=== PATIENT | female | born 1955 | race Caucasian/White ===

== ENCOUNTER 2017-03-16 06:21 | Inpatient (IN) | payer MEDICARE ==
[2017-03-16] MEDS ORDERED: Phenergan 25 MG INJ IV ONE (06:38)
[2017-03-16] MEDS ORDERED: Sodium Chloride 0.9% 1000 ML 1,000 ML IV STA (06:38)
--- NOTE | 2017-03-16 06:53 | ERPHSYRPT ---
- History of Present Illness Source: patient Exam Limitations: no limitations Patient Subjective Stated Complaint: woke up with heart racing.vomiting x 3 since yesterday. dizziness but muller had that for a long time. bilateral lower leg ulcers for years. feeling hot and cold Triage Nursing Assessment: alert and oriented. staets woke up with heart racing. denies CP. vomited x 3 nauseated on arrival. denies knowing if she had fever has no thermometer but has been hot and cold. denies cough. denies abdominal pain. bilatreral lower leg ulcers which she has been treating for "years" Hx Tetanus, Diphtheria Vaccination/Date Given: No Hx Influenza Vaccination/Date Given: Yes (Fall 2013) Hx Pneumococcal Vaccination/Date Given: Yes Immunizations Up to Date: (unknown) <JENARO DURHAM - Last Filed: 03/16/17 07:07> <ZAHIDA SIDDIQUI - Last Filed: 03/16/17 09:04> - History of Present Illness Time Seen by Provider: 03/16/17 06:24 Physician History: FOR THE PAST 90 MINUTES PT HAS HAD A FAST HEART RATE AND CHILLS; FOR THE PAST 2 DAYS A COUGH PRODUCTIVE OF YELLOW PHLEGM AND VOMITING X3; FOR THE PAST WEEK GENERALIZED WEAKNESS; FOR THE PAST 12 YEARS CHRONIC DIARRHEA. PT DENIES CHEST PAIN, ABDOMINAL PAIN, FEVER, SHORTNESS OF AIR. (JENARO DURHAM) Allergies/Adverse Reactions: No Known Drug Allergies Allergy (Unverified 09/25/14 13:29) Home Medications: Albuterol 8 gm Mdi Hfa [Ventolin Hfa MDI] 2 puff IH QID PRN 03/20/13 [ History] Furosemide 40 mg PO DAILY 03/20/13 [History] Insulin Aspart [NovoLOG Insulin] 0 unit SQ DAILY 03/20/13 [History] Levothyroxine Sodium 75 Mcg [Synthroid 75 Mcg] 1 tab PO DAILY 03/20/13 [ History] Linagliptin [Tradjenta] 5 mg PO DAILY 03/20/13 [History] Liraglutide [Victoza 2-Marcell] mg SQ DAILY 03/20/13 [History] Losartan/Hydrochlorothiazide [Losartan-Hctz 100-25 mg Tab] 1 tab PO DAILY [History] Metoprolol Tartrate 12.5 mg PO BID 03/20/13 [History] [place]-3 Fatty Acids/Fish Oil [Fish Oil 1,000 mg Softgel] 1 each PO DAILY [History] Omeprazole 20 MG [Prilosec 20 mg] 1 cap PO DAILY 03/20/13 [History] Potassium Chloride 10 Meq Tab* [Klor Con 10 MEQ] 40 meq PO BID 03/20/13 [ History] Rivaroxaban [Xarelto] 15 mg PO DAILY 03/20/13 [History] Venlafaxine HCl ER 75 mg [Effexor XR 75 MG] 150 mg PO DAILY 03/20/13 [ History] Dapagliflozin Propanediol [Farxiga] 10 mg PO DAILY 08/26/13 [History] Metformin HCl 500 mg [Glucophage 500 MG] 500 mg PO BID 08/26/13 [History] Allopurinol 300 mg [Zyloprim 300 mg] 300 mg PO DAILY 09/25/14 [History] Calcium Carbonate/Vitamin D3 [Caltrate 600 + D Tablet] 3 each PO DAILY 09/25/14 [History] Cholecalciferol (Vitamin D3) [Vitamin D] 1.25 mg PO 09/25/14 [History] Iron 18 mg PO BID 09/25/14 [History] L.acidoph,Paracasei, B.lactis [Probiotic] 1 each PO DAILY 09/25/14 [History] - Review of Systems Constitutional: Chills, Weakness (GENERALIZED), No Fever Respiratory: Cough, No Dyspnea Cardiac: Other (FAST HEART RATE), No Chest Pain Abdominal/Gastrointestinal: Vomiting, Diarrhea, No Abdominal Pain Neurological: No Headache Endocrine: No Excessive Sweating All Other Systems: Reviewed and Negative <JENARO DURHAM - Last Filed: 03/16/17 07:07> - Past Medical History Pertinent Past Medical History: Yes Neurological History: Peripheral Neuropathy ENT History: Other Cardiac History: Congestive Heart Failure, Hypertension, Myocardial Infarction ( [place]), Peripheral Vascular Disease Respiratory History: Asthma, CHF Endocrine Medical History: Diabetes Type II Musculoskeletal History: Arthritis GI Medical History: GERD, Ulcer, Other History: No Pertinent History Psycho-Social History: Anxiety Female Reproductive Disorders: No Pertinent History Other Medical History: IDDM W/ INSULIN PUMP; HTN; GASTRIC BYPASS 2012 - Past Surgical History Past Surgical History: Yes Neuro Surgical History: No Pertinent History Cardiac: No Pertinent History, Cardiac Catheterization Respiratory: No Pertinent History Gastrointestinal: Cholecystectomy Genitourinary: No Pertinent History Musculoskeletal: Other Female Surgical History: No Pertinent History Other Surgical History: states "opened up to drain fluid of the heart around 2012"right collar bone,right top of foot surgery spurs removed,right palm of hand trigger finger.,bariatric surgery, - Social History Smoking Status: Former smoker How long have you smoked: 1 yr Exposure to second hand smoke: No Drug Use: none Patient Lives Alone: No Significant Family History: heart disease - Female History Hx Now: No <JENARO DURHAM - Last Filed: 03/16/17 07:07> - Physical Exam General Appearance: alert Eye Exam: PERRL/EOMI Ears, Nose, Throat Exam: TMs normal, pharynx normal, moist mucous membranes Neck Exam: normal inspection Respiratory Exam: lungs clear Cardiovascular Exam: irregular (IRREGULARLY IRREGULAR), No gallop Gastrointestinal/Abdomen Exam: soft, normal bowel sounds Back Exam: normal range of motion Extremity Exam: swelling (+1 ANKLE EDEMA BILATERALLY) Neurologic Exam: alert, cooperative Skin Exam: warm, dry SpO2 Interpretation: normal SpO2: 96 Oxygen Delivery: Room Air <JENARO DURHAM - Last Filed: 03/16/17 07:07> <ZAHIDA SIDDIQUI - Last Filed: 03/16/17 09:04> - Nursing Vital Signs Nursing Vital Signs: Initial Vital Signs Temperature 98.9 F 03/16/17 06:27 Pulse Rate 110 H 03/16/17 06:27 Respiratory Rate 20 03/16/17 06:27 Blood Pressure 168/80 03/16/17 06:27 O2 Sat by Pulse Oximetry 96 03/16/17 06:27 Pain Scale Pain Intensity 0 - Course Nursing assessment & vital signs reviewed: Yes EKG Interpreted by Me: RATE (88), Sinus Rhythm, NORMAL AXIS, Non-specific ST Changes, Other (IRREGULAR ) <JENARO DURHAM - Last Filed: 03/16/17 07:07> - Radiology Exams Chest X-ray Interpretation: Teleradiologist Report, Pneumonia, Other (vascular congestion) <ZAHIDA SIDDIQUI - Last Filed: 03/16/17 09:04> Ordered Tests: Active Orders 24 hr Category Date Time Status Risk And Compliance Analytics Director STAT Care 03/16/17 06:40 Active Clean Catch Urine Specimen STAT Care 03/16/17 06:38 Active EKG-ER Only STAT Care 03/16/17 06:38 Active IV Insertion STAT Care 03/16/17 06:38 Active Oxygen-ED Only NASAL CANNULA 2 lpm Care 03/16/17 06:38 Active Pulse Oximetry (ED) STAT Care 03/16/17 06:38 Active CHEST 1 VIEW (PORTABLE) Stat Exams 03/16/17 06:39 Completed AMYLASE Stat Lab 03/16/17 07:00 Completed CBC W DIFF Stat Lab 03/16/17 07:00 Completed CMP Stat Lab 03/16/17 07:00 Completed CULTURE,URINE Stat Lab 03/16/17 07:00 Received LIPASE Stat Lab 03/16/17 07:00 Completed MAGNESIUM Stat Lab 03/16/17 07:00 Completed Manual Differential NC Stat Lab 03/16/17 07:00 Completed NT PRO BNP Stat Lab 03/16/17 07:00 Completed TROPONIN Q3H Lab 03/16/17 07:00 Completed TROPONIN Q3H Lab 03/16/17 09:45 Ordered TROPONIN Q3H Lab 03/16/17 12:45 Ordered TROPONIN Q3H Lab 03/16/17 15:45 Ordered TROPONIN Q3H Lab 03/16/17 18:45 Ordered TROPONIN Q3H Lab 03/16/17 21:45 Ordered UA W/ MICROSCOPIC Stat Lab 03/16/17 07:00 Completed Urine Triage Profile Stat Lab 03/16/17 07:00 Completed Transfer Order Routine Transfer 03/16/17 Ordered Medication Summary Generic Name Dose Route Start Last Admin Trade Name Freq PRN Reason Stop Dose Admin Azithromycin 500 mg in 250 mls @ 250 mls/hr 03/16/17 08:52 Zithromax 500 Mg/ 250 Ml Nacl Premix IV 03/16/17 09:51 STAT STA Discontinued Medications Generic Name Dose Route Start Last Admin Trade Name Freq PRN Reason Stop Dose Admin Ceftriaxone Sodium 1,000 mg 03/16/17 07:48 03/16/17 08:10 Rocephin 1000 Mg Inj IV 03/16/17 07:49 1,000 mg STAT ONE Administration Sodium Chloride 1,000 mls @ 999 mls/hr 03/16/17 06:38 03/16/17 07:03 Sodium Chloride 0.9% 1000 Ml IV 03/16/17 07:38 999 mls/hr .Q1H1M STA Administration Sodium Chloride Confirm 03/16/17 06:58 Sodium Chloride 0.9% 1000 Ml Administered 03/16/17 06:59 Dose 1,000 mls @ ud .ROUTE .STK-MED ONE Ceftriaxone Sodium/Dextrose Confirm 03/16/17 08:09 Rocephin 1 Gm-D5w 50 Ml Bag Administered 03/16/17 08:10 Dose 1 g in 50 mls @ ud IV .STK-MED ONE Promethazine HCl 12.5 mg 03/16/17 06:38 03/16/17 07:03 Phenergan 25 Mg Inj IV 03/16/17 06:39 12.5 mg STAT ONE Administration Promethazine HCl Confirm 03/16/17 06:58 Phenergan 25 Mg Inj Administered 03/16/17 06:59 Dose 25 mg .ROUTE .STK-MED ONE Lab/Rad Data: Laboratory Result Diagrams 03/16/17 07:00 03/16/17 07:00 Laboratory Results 03/16/17 03/16/17 03/16/17 Range/Units 07:00 07:00 07:00 WBC (4.0-10.5) K/mm3 RBC (4.1-5.4) M/mm3 Hgb (12.0-16.0) gm/dl Hct (35-47) % MCV (78-100) fl MCH (26-32) pg MCHC (32-36) g/dl RDW (11.5-14.0) % Plt Count (150-450) K/mm3 MPV (6-9.5) fl Segmented Neutrophils (36.0-66.0) % Lymphocytes (Manual) (24-44) % Monocytes (Manual) (0.0-12.0) % Eosinophils (Manual) (0.00-3.0) % Differential Comment Platelet Estimate (NORMAL) Sodium (136-145) mEq/L Potassium (3.5-5.1) mEq/L Chloride (98-107) mEq/L Carbon Dioxide (21-32) mEq/L Anion Gap (5-15) MEQ/L BUN (9-20) mg/dL Creatinine (0.55-1.30) mg/dl Estimated GFR ML/MIN Glucose (70-110) MG/DL Calcium (8.5-10.1) mg/dL Magnesium (1.8-2.4) mg/dL Total Bilirubin (0.2-1.0) mg/dL AST (15-37) U/L ALT (12-78) U/L Alkaline Phosphatase (46-116) U/L Troponin I < 0.017 (0.000-0.056) ng/ml NT-Pro-B Natriuret Pep (0-125) pg/ml Serum Total Protein (6.4-8.2) gm/dL Albumin (3.4-5.0) g/dL Amylase (25-115) U/L Lipase (73-393) U/L Ur Collection Type CLEAN CATCH Urine Color YELLOW (YELLOW) Urine Appearance HAZY (CLEAR) Urine pH 5.0 (5-6) Ur Specific [place] 1.025 (1.005-1.025) Urine Protein 300 (Negative) Urine Ketones NEGATIVE (NEGATIVE) Urine Blood 250 (0-5) Yovany/ul Urine Nitrite NEGATIVE (NEGATIVE) Urine Bilirubin NEGATIVE (NEGATIVE) Urine Urobilinogen NORMAL (0-1) mg/dL Ur Leukocyte Esterase 2+ (NEGATIVE) Urine Microscopic RBC 5-10 (0-2) /HPF Urine Microscopic WBC 50-100 (0-5) /HPF Ur Epithelial Cells MODERATE (FEW) /HPF Urine Bacteria MANY (NEGATIVE) /HPF Urine Culture Reflexed YES (NO) Urine Glucose NEGATIVE (NEGATIVE) mg/dL Urine Opiates Level NEG. (NEGATIVE) Ur Methadone NEG. (NEGATIVE) Urine Barbiturates NEG. (NEGATIVE) Ur Phencyclidine (PCP) NEG. (NEGATIVE) Urine Amphetamine NEG. (NEGATIVE) U Benzodiazepine Level NEG. (NEGATIVE) Urine Cocaine NEG. (NEGATIVE) Urine Marijuana (THC) NEG. (NEGATIVE) Specimen Received 03-15-17 0700 03/16/17 03/16/17 Range/Units 07:00 07:00 WBC 5.8 (4.0-10.5) K/mm3 RBC 4.30 (4.1-5.4) M/mm3 Hgb 13.1 (12.0-16.0) gm/dl Hct 40.3 (35-47) % MCV 93.7 (78-100) fl MCH 30.5 (26-32) pg MCHC 32.5 (32-36) g/dl RDW 13.8 (11.5-14.0) % Plt Count 128 L (150-450) K/mm3 MPV 10.8 H (6-9.5) fl Segmented Neutrophils 78 H (36.0-66.0) % Lymphocytes (Manual) 12 L (24-44) % Monocytes (Manual) 8 (0.0-12.0) % Eosinophils (Manual) 2 (0.00-3.0) % Differential Comment NORMAL Platelet Estimate NORMAL (NORMAL) Sodium 143 (136-145) mEq/L Potassium 4.6 (3.5-5.1) mEq/L Chloride 108 H (98-107) mEq/L Carbon Dioxide 26.8 (21-32) mEq/L Anion Gap 13.0 (5-15) MEQ/L BUN 18 (9-20) mg/dL Creatinine 1.17 (0.55-1.30) mg/dl Estimated GFR 50 ML/MIN Glucose 155 H (70-110) MG/DL Calcium 8.9 (8.5-10.1) mg/dL Magnesium 1.5 L (1.8-2.4) mg/dL Total Bilirubin 0.40 (0.2-1.0) mg/dL AST 28 (15-37) U/L ALT 34 (12-78) U/L Alkaline Phosphatase 137 H (46-116) U/L Troponin I (0.000-0.056) ng/ml NT-Pro-B Natriuret Pep 1047 H (0-125) pg/ml Serum Total Protein 7.4 (6.4-8.2) gm/dL Albumin 4.0 (3.4-5.0) g/dL Amylase 70 (25-115) U/L Lipase 82 (73-393) U/L Ur Collection Type Urine Color (YELLOW) Urine Appearance (CLEAR) Urine pH (5-6) Ur Specific [place] (1.005-1.025) Urine Protein (Negative) Urine Ketones (NEGATIVE) Urine Blood (0-5) Yovany/ul Urine Nitrite (NEGATIVE) Urine Bilirubin (NEGATIVE) Urine Urobilinogen (0-1) mg/dL Ur Leukocyte Esterase (NEGATIVE) Urine Microscopic RBC (0-2) /HPF Urine Microscopic WBC (0-5) /HPF Ur Epithelial Cells (FEW) /HPF Urine Bacteria (NEGATIVE) /HPF Urine Culture Reflexed (NO) Urine Glucose (NEGATIVE) mg/dL Urine Opiates Level (NEGATIVE) Ur Methadone (NEGATIVE) Urine Barbiturates (NEGATIVE) Ur Phencyclidine (PCP) (NEGATIVE) Urine Amphetamine (NEGATIVE) U Benzodiazepine Level (NEGATIVE) Urine Cocaine (NEGATIVE) Urine Marijuana (THC) (NEGATIVE) Specimen Received <JENARO DURHAM - Last Filed: 03/16/17 07:07> - Progress Progress: improved Discussed with : Malia (Dr. Small notified and agreed with admission) Will see patient in: hospital (observation) Counseled pt/family regarding: lab results, diagnosis, rad results <ZAHIDA SIDDIQUI - Last Filed: 03/16/17 09:04> - Progress Progress Note: 03/16/17 07:[address] SIDDIQUI @ 0702. (JENARO DURHAM) 03/16/17 08:52 Pt. given Rocephin/Zithromax (ZAHIDA SIDDIQUI) <JENARO DURHAM - Last Filed: 03/16/17 07:07> - Departure Time of Disposition: 08:51 Departure Disposition: Observation Critical Care Time: No <ZAHIDA SIDDIQUI - Last Filed: 03/16/17 09:04> - Departure Clinical Impression: UTI (urinary tract infection), Pneumonia Condition: Stable Referrals: SHAVON SMALL [Primary Care Provider] -
[2017-03-16] MEDS ORDERED: Sodium Chloride 0.9% 1000 ML 1,000 ML ONE (06:58)
[2017-03-16] MEDS ORDERED: Phenergan 25 MG INJ ONE (06:58)
[2017-03-16 07:02] LABS: Granulocyte Absolute (ANC) 4.25 (1.4-6.9); Hematocrit 40.3 % (35-47); Hemoglobin 13.1 gm/dl (12.0-16.0); Mean Cell Volume 93.7 fl (78-100); Mean Corpuscular Hemoglobin 30.5 pg (26-32); Mean Corpuscular Hgb Concent. 32.5 g/dl (32-36); Mean Platelet Volume 10.8 fl (6-9.5); Platelet Count 128 K/mm3 (150-450); Red Cell Distribution Width 13.8 % (11.5-14.0); White Blood Count 5.8 K/mm3 (4.0-10.5)
[2017-03-16 07:15] LABS: Appearance HAZY (CLEAR); Specific Gravity 1.025 (1.005-1.025)
[2017-03-16 07:16] LABS: Amphetamine,Urine NEG. (NEGATIVE); Barbiturate,Urine NEG. (NEGATIVE); Benzodiazepine,Urine NEG. (NEGATIVE); Bilirubin NEGATIVE (NEGATIVE); Blood 250 Ery/ul (0-5); Cocaine,Urine NEG. (NEGATIVE); Glucose NEGATIVE (NEGATIVE); Ketones NEGATIVE (NEGATIVE); Leukocyte Esterase 2+ (NEGATIVE); Methadone,Urine NEG. (NEGATIVE); Nitrite NEGATIVE (NEGATIVE); Opiate,Urine NEG. (NEGATIVE); PCP,Urine NEG. (NEGATIVE); Protein,Urine Dip 300 (Negative); THC,Urine NEG. (NEGATIVE); Urobilinogen NORMAL mg/dL (0-1)
[2017-03-16 07:23] LABS: Bacteria MANY /HPF (NEGATIVE); Epithelial Cells MODERATE /HPF (FEW); WBC 50-100 /HPF (0-5)
[2017-03-16 07:30] LABS: BILIRUBIN,TOTAL 0.4 mg/dL (0.2-1.0); Calcium 8.9 mg/dL (8.5-10.1); Carbon Dioxide 26.8 mEq/L (21-32); Creatinine 1 1.17 mg/dl (0.55-1.30); MAGNESIUM 1.5 mg/dL (1.8-2.4); Potassium 4.6 mEq/L (3.5-5.1); Total Protein 7.4 gm/dL (6.4-8.2)
[2017-03-16] MEDS ORDERED: Rocephin 1000 MG INJ IV ONE (07:48)
[2017-03-16] MEDS ORDERED: ROCEPHIN 1 Gm-D5w 50 ml Bag** 1 G/50 ML IVPB IV ONE (08:09)
[2017-03-16 08:31] LABS: Eosinophil 2 % (0.00-3.0); Lymphocytes 12 % (24-44); Monocyte 8 % (0.0-12.0); Neutrophils 78 % (36.0-66.0); Platelet Estimate NORMAL (NORMAL); Total Cells Counted 100
--- NOTE | 2017-03-16 08:39 | XRAY ---
Indication: Cough. Comparison: February 03, 2012. Portable chest now demonstrates cardiomegaly with vascular congestion. No focal infiltrate, consolidation, or large effusion. Bony thorax intact again with mild osteopenia. Impression: Cardiomegaly with vascular congestion. Rule out early/mild cardiac decompensation. Superimposed pneumonia not completely excluded.
[2017-03-16] MEDS ORDERED: Zithromax 500 MG/ 250 ML NaCl Premix 500 MG/250 ML IVPB IV STA (08:52)
[2017-03-16] MEDS ORDERED: NovoLIN R SQ PRN (09:54)
[2017-03-16] MEDS ORDERED: ROCEPHIN 1 Gm-D5w 50 ml Bag** 1 G/50 ML IVPB IV SCH (10:00)
[2017-03-16] MEDS ORDERED: Sodium Chloride 0.9% 10 ML FLUSH Syringe IV PRN (10:40)
[2017-03-16] MEDS ORDERED: Zithromax 500 MG/ 250 ML NaCl Premix 500 MG/250 ML IVPB IV SCH (11:15)
[2017-03-16 11:25] LABS: ANION GAP 9.2 MEQ/L (5-15); Calcium 8.3 mg/dL (8.5-10.1); Carbon Dioxide 28.7 mEq/L (21-32); Creatinine 1 1.06 mg/dl (0.55-1.30); PREALBUMIN 17.6 mg/dL (18.0-35.7); Potassium 4.8 mEq/L (3.5-5.1)
[2017-03-16 12:28] LABS: INFLUENZA A NEGATIVE (NEGATIVE); INFLUENZA B NEGATIVE (NEGATIVE); RESPIRATORY SYNCTIAL VIRUS NEGATIVE (Negative)
[2017-03-16] MEDS ORDERED: PROTEASE PO SCH (14:30)
[2017-03-16] MEDS ORDERED: EXENATIDE MICROSPHERES 2 MG SQ SCH (14:30)
[2017-03-16] MEDS ORDERED: LIPASE PO SCH (14:30)
[2017-03-16] MEDS ORDERED: AMYLASE PO SCH (14:30)
[2017-03-16] MEDS ORDERED: PROVENTIL COMMON CANISTER IH SCH (15:00)
[2017-03-16] MEDS ORDERED: PANCRELIPASE DR 5,000 UNIT CAP PO PRN (15:00)
[2017-03-16] MEDS ORDERED: MEDICATION INTERVENTION MC PRN (15:27)
[2017-03-16] MEDS: Cozaar 50 MG PO SCH (15:35)
[2017-03-16] MEDS: SYNTHROID 75 MCG PO SCH (15:35)
[2017-03-16] MEDS: Januvia 50 MG PO SCH (15:35)
[2017-03-16] MEDS: Effexor XR 75 MG PO SCH (15:35)
[2017-03-16] MEDS: Lasix 40 MG PO SCH (15:36)
[2017-03-16] MEDS: Sodium Chloride 0.9% 10 ML FLUSH Syringe IV SCH ×2 (15:36→21:20)
[2017-03-16] MEDS: hydroDIURIL 25 MG PO SCH (15:36)
[2017-03-16] MEDS: ANTIVERT 25 MG PO SCH ×2 (15:36→21:14)
[2017-03-16] MEDS: PANCRELIPASE DR 5,000 UNIT CAP PO SCH (16:11)
[2017-03-16] MEDS ORDERED: Ventolin Hfa MDI IH SCH (17:00)
[2017-03-16] MEDS ORDERED: Cardizem IV 50 MG/10 ML IV ONE (17:30)
[2017-03-16] MEDS ORDERED: CARDIZEM DRIP 100 MG/100 ML D5W 100 ML IV PRN (17:30)
[2017-03-16] MEDS: XARELTO 10 MG TABLET PO SCH (17:36)
[2017-03-16] MEDS: Protonix 40MG Tablet PO SCH (21:14)
[2017-03-16] MEDS ORDERED: OMEPRAZOLE 20 MG PO SCH (22:00)
[2017-03-16] MEDS ORDERED: Lopressor 25MG Tab PO SCH (22:00)
[2017-03-17] MEDS: Sodium Chloride 0.9% 10 ML FLUSH Syringe IV SCH ×3 (05:47→21:37)
[2017-03-17 05:48] LABS: BASOPHIL % 0.6 % (0.0-0.4); Basophil (Absolute #) 0.03 (0-0.4); Eosinophil % 11.2 % (0.00-5.0); Eosinophil (Absolute #) 0.54 (0-0.5); Granulocyte Absolute (ANC) 2.69 (1.4-6.9); Granulocytes % 55.8 % (36.0-66.0); Hematocrit 38.5 % (35-47); Hemoglobin 12.7 gm/dl (12.0-16.0); Lymphocyte (Absolute #) 1.08 (1.0-4.6); Lymphocytes % 22.4 % (24.0-44.0); Mean Cell Volume 92.3 fl (78-100); Mean Corpuscular Hemoglobin 30.5 pg (26-32); Mean Platelet Volume 10.2 fl (6-9.5); Monocyte (Absolute #) 0.48 (0.0-1.3); Platelet Count 148 K/mm3 (150-450); Red Blood Count 4.17 M/mm3 (4.1-5.4); Red Cell Distribution Width 13.5 % (11.5-14.0); White Blood Count 4.8 K/mm3 (4.0-10.5)
[2017-03-17 06:37] LABS: ALBUMIN 3.3 g/dL (3.4-5.0); ANION GAP 12.3 MEQ/L (5-15); BILIRUBIN,TOTAL 0.5 mg/dL (0.2-1.0); Calcium 8.7 mg/dL (8.5-10.1); Carbon Dioxide 26.5 mEq/L (21-32); Creatinine 1 1.03 mg/dl (0.55-1.30); Potassium 4.1 mEq/L (3.5-5.1); Total Protein 6.4 gm/dL (6.4-8.2)
[2017-03-17] MEDS: PANCRELIPASE DR 5,000 UNIT CAP PO SCH ×3 (08:29→14:49)
[2017-03-17] MEDS: ROCEPHIN 1 Gm-D5w 50 ml Bag** 1 G/50 ML IVPB IV SCH (08:34)
[2017-03-17] MEDS: SYNTHROID 75 MCG PO SCH (08:34)
[2017-03-17] MEDS ORDERED: Magnesium 1 Gm / 100 Ml D5W*** 100 ML IV ONE (09:30)
[2017-03-17] MEDS: hydroDIURIL 25 MG PO SCH (09:50)
[2017-03-17] MEDS: Protonix 40MG Tablet PO SCH ×2 (09:50→21:34)
[2017-03-17] MEDS: Cozaar 50 MG PO SCH (09:50)
[2017-03-17] MEDS: Lasix 40 MG PO SCH (09:50)
[2017-03-17] MEDS: CLARITIN 10 MG PO SCH (09:50)
[2017-03-17] MEDS: Lopressor 25MG Tab PO SCH ×2 (09:50→21:35)
[2017-03-17] MEDS: Effexor XR 75 MG PO SCH (09:53)
[2017-03-17] MEDS: ANTIVERT 25 MG PO SCH ×3 (09:53→21:34)
[2017-03-17] MEDS: Januvia 50 MG PO SCH (09:53)
[2017-03-17] MEDS ORDERED: VITAMIN D2 PO SCH (10:00)
[2017-03-17] MEDS ORDERED: NON-FORMULARY ITEM (Rivaroxaban [Xarelto] 15 MG) PO SCH (10:00)
[2017-03-17] MEDS ORDERED: Cardizem CD 180 MG PO SCH (10:00)
[2017-03-17] MEDS ORDERED: NON-FORMULARY ITEM (Linagliptin [Tradjenta] 5 MG) PO SCH (10:00)
[2017-03-17] MEDS ORDERED: NON-FORMULARY ITEM (Losartan/Hydrochlorothiazide [Losartan-Hctz 100-25 Mg Tab] 1 TAB) PO SCH (10:00)
--- NOTE | 2017-03-17 11:13 | HP ---
CHIEF COMPLAINT: Heart racing, nausea and vomiting. HISTORY OF PRESENT ILLNESS: The patient is a 61 year-old white female who reports that she woke up with her heart racing. By the time she got to the emergency room her heart rate was 110 and was apparently at that time in sinus rhythm. The patient on evaluation was found to possibly have a pneumonia with infiltrate or atelectasis in the base and she had no symptoms of urinary tract infection but she did have significant white cells in her urine. She had the urine cultured. She was placed on Rocephin and Zithromax and admitted to the hospital for further evaluation and management. PAST MEDICAL/SURGICAL HISTORY: Significant for having gastric bypass surgery. She has had congestive heart failure, previous myocardial infarction, hypertension, diabetes mellitus type 2. She currently has an insulin pump. HOME MEDICATIONS: Include Albuterol, Furosemide, insulin, levothyroxine, Tradjenta, Victoza, losartan hydrochlorothiazide, metoprolol, omeprazole, potassium, Xarelto, Effexor, Farxiga, Metformin, Allopurinol, iron. ALLERGIES: NKDA. PHYSICAL EXAMINATION: Revealed a well nourished, well developed 61 year-old white female in no obvious distress. HEENT: Normocephalic, atraumatic. Pupils equal round reactive to light. Extraocular movements intact. Oropharynx is pink and moist. NECK: Supple without lymphadenopathy, thyromegaly or JVD. CHEST: Clear to auscultation with good air movement bilaterally. HEART: Currently irregular. The rate is somewhat fast right now and approximately 110. ABDOMEN: Soft. No palpable masses are felt. EXTREMITIES: Without clubbing, cyanosis or significant edema. NEUROLOGIC: The patient is alert and oriented x3 with no focal deficits noted. LAB DATA AND TESTS: Chest x-ray showed cardiomegaly with vascular congestion, supra-imposed pneumonia could not be excluded. Her metabolic panel showed a nonfasting glucose of 155, BUN 18, creatinine 1.17. Electrolytes were normal however magnesium was low at 1.7. Liver enzymes were essentially normal. She did have an elevation of ProBNP of 1,047. The troponin was less than 0.017. Urine drug screen was entirely negative. UA showed 300 protein, 50 to 100 white blood cells per high power field, nitrite however was negative. Her white blood cell count was 5,800, hemoglobin 13.1, PLT count 128,000. There was slight left shift at 78% granulocytes. ASSESSMENT: A patient with atrial fibrillation probably with rapid ventricular response at home. The patient has been admitted to the hospital and placed on Cardizem drip. She currently is being empirically treated for pneumonia with Rocephin. Zithromax was also given which we will now hold. There is also possibility of urinary tract infection. The urine has been cultured and currently pending. We will obtain cardiology consultation as the atrial fibrillation is possibly new. I do not recall her having it in the past and neither does she. 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
[2017-03-17] MEDS: XARELTO 10 MG TABLET PO SCH (17:59)
[2017-03-18 06:39] LABS: ANION GAP 12.4 MEQ/L (5-15); Calcium 8.8 mg/dL (8.5-10.1); Carbon Dioxide 27.3 mEq/L (21-32); Creatinine 1 1.21 mg/dl (0.55-1.30); MAGNESIUM 1.6 mg/dL (1.8-2.4); Potassium 3.8 mEq/L (3.5-5.1)
[2017-03-18] MEDS: PANCRELIPASE DR 5,000 UNIT CAP PO SCH ×2 (07:30→12:20)
[2017-03-18] MEDS: Sodium Chloride 0.9% 10 ML FLUSH Syringe IV SCH (07:54)
--- NOTE | 2017-03-18 09:25 | PCM.DS ---
Discharge Summary Date of Admission: 03/16/17 17:53 Admitting Physician: SHAVON SMALL Primary Care Provider: SHAVON SMALL Allergies Allergies No Known Drug Allergies Allergy (Verified 03/16/17 09:52) Hospital Summary - Vitals & Intake/Output Vital Signs: Vital Signs Temperature 98.5 F 03/18/17 07:20 Pulse Rate 63 03/18/17 07:20 Respiratory Rate 16 03/18/17 08:00 Blood Pressure 161/70 03/18/17 07:20 O2 Sat by Pulse Oximetry 91 L 03/18/17 07:20 Oxygen-Last Documented O2 Percentage 2 Liters = 28% Intake & Output: Intake & Output 03/15/17 03/16/17 03/17/17 03/18/17 11:59 11:59 11:59 11:59 Intake Total 556 790 Output Total 1400 Balance -844 790 Weight 238 kg - Lab Result Diagrams: 03/17/17 05:35 03/18/17 06:00 Lab Results-Last 24 Hrs: Accuchecks Date 03/18/17 Date 03/17/17 Date 03/17/17 Date 03/17/17 Time 07:30 Time 21:30 Time 16:25 Time 11:04 Accucheck Value: 112 Accucheck Value: 90 Accucheck Value: 97 Accucheck Value: 154 Lab Results-Last 24 Hours 03/18/17 Range/Units 06:00 Sodium 142 (136-145) mEq/L Potassium 3.8 (3.5-5.1) mEq/L Chloride 106 (98-107) mEq/L Carbon Dioxide 27.3 (21-32) mEq/L Anion Gap 12.4 (5-15) MEQ/L BUN 23 H (9-20) mg/dL Creatinine 1.21 (0.55-1.30) mg/dl Estimated GFR 48 ML/MIN Glucose 134 H (70-110) MG/DL Calcium 8.8 (8.5-10.1) mg/dL Magnesium 1.6 L (1.8-2.4) mg/dL Micro Results-Entire Visit: Accuchecks Date 03/18/17 Date 03/17/17 Date 03/17/17 Date 03/17/17 Time 07:30 Time 21:30 Time 16:25 Time 11:04 Accucheck Value: 112 Accucheck Value: 90 Accucheck Value: 97 Accucheck Value: 154 - Procedures and Test Procedures and Tests throughout Hospitalization: Therapy Orders & Screens 03/16/17 18:10 EKG ONCE Comment: Diagnosis: PNEUMONIA, UTI 03/17/17 09:29 Respiratory Nebulizer PRN Comment: Diagnosis: AFIB WITH RVR - Discharge Discharge Date: 03/18/17 Condition: Stable Prescriptions: New Cephalexin Mh 500 mg [Keflex 500 mg] 500 mg PO TID #21 capsule Continue Linagliptin [Tradjenta] 5 mg PO DAILY Rivaroxaban [Xarelto] 15 mg PO DAILY Losartan/Hydrochlorothiazide [Losartan-Hctz 100-25 mg Tab] 1 tab PO DAILY Venlafaxine HCl ER 75 mg [Effexor XR 75 MG] 150 mg PO DAILY Levothyroxine Sodium 75 Mcg [Synthroid 75 Mcg] 1 tab PO DAILY Omeprazole 20 MG [Prilosec 20 mg] 1 cap PO BID Furosemide 40 mg PO DAILY Albuterol Sulfate [Ventolin Hfa] 18 gm IH QID Exenatide Microspheres [Bydureon Pen] 2 mg SQ UD Alendronate Sodium 70 mg [Fosamax 70 MG] 1 tab PO Q7D Lipase/Protease/Amylase [Kristopheron Dr 24,000 Units Capsule] 1 each PO UD Cyanocobalamin 1000 Mcg/ml [Cyanocobalamin B-12 1000 MCG/ML] 1 ml IJ Q30D Meclizine HCl 25 mg [Antivert 25 mg] 1 tab PO TID Loratadine 10 mg [Claritin 10 mg] 1 tab PO DAILY Ergocalciferol (Vitamin D2) [Vitamin D2] 1 cap PO UD Changed Metoprolol Tartrate 25 mg PO BID #0 Instructions: Atrial Fibrillation Follow up with: SHAVON SMALL [Primary Care Provider] - LYNN MCGEE [ACTIVE STAFF] - 03/22/17 2:45 pm ([place] [facility])
--- NOTE | 2017-03-18 09:30 | PCM.DS ---
Discharge Summary Date of Admission: 03/16/17 17:53 Date of Discharge: 03/18/17 Admitting Physician: SHAVON SMALL Primary Care Provider: SHAVON SMALL Allergies Allergies No Known Drug Allergies Allergy (Verified 03/16/17 09:52) Hospital Summary - Hospital Course Hospital Course: She presented to ED after having shortness of breath and palpitations. She was feeling better when she arrived and found to have UTI and some pulmonary vascular congestion. She was treated with antibiotics and the first night of admission went into atrial fibrillation with rvr into the 170's she was given bolus of cardizem and it appears converted to NSR. She has been in normal sinus rhythm since on Rocephin and is feeling well with no SOB. She follows with Dr. Minaya for her atrial fibrillation that he has been treating. She was unaware she was being treated for this but on review of his notes that is the reason for her xarelto and metoprolol and she has echocardiograms with him. - Vitals & Intake/Output Vital Signs: Vital Signs Temperature 98.5 F 03/18/17 07:20 Pulse Rate 63 03/18/17 07:20 Respiratory Rate 16 03/18/17 08:00 Blood Pressure 161/70 03/18/17 07:20 O2 Sat by Pulse Oximetry 91 L 03/18/17 07:20 Oxygen-Last Documented O2 Percentage 2 Liters = 28% Intake & Output: Intake & Output 03/15/17 03/16/17 03/17/17 03/18/17 11:59 11:59 11:59 11:59 Intake Total 556 790 Output Total 1400 Balance -844 790 Weight 238 kg - Lab Result Diagrams: 03/17/17 05:35 03/18/17 06:00 Lab Results-Last 24 Hrs: Accuchecks Date 03/18/17 Date 03/17/17 Date 03/17/17 Date 03/17/17 Time 07:30 Time 21:30 Time 16:25 Time 11:04 Accucheck Value: 112 Accucheck Value: 90 Accucheck Value: 97 Accucheck Value: 154 Lab Results-Last 24 Hours 03/18/17 Range/Units 06:00 Sodium 142 (136-145) mEq/L Potassium 3.8 (3.5-5.1) mEq/L Chloride 106 (98-107) mEq/L Carbon Dioxide 27.3 (21-32) mEq/L Anion Gap 12.4 (5-15) MEQ/L BUN 23 H (9-20) mg/dL Creatinine 1.21 (0.55-1.30) mg/dl Estimated GFR 48 ML/MIN Glucose 134 H (70-110) MG/DL Calcium 8.8 (8.5-10.1) mg/dL Magnesium 1.6 L (1.8-2.4) mg/dL Micro Results-Entire Visit: Accuchecks Date 03/18/17 Date 03/17/17 Date 03/17/17 Date 03/17/17 Time 07:30 Time 21:30 Time 16:25 Time 11:04 Accucheck Value: 112 Accucheck Value: 90 Accucheck Value: 97 Accucheck Value: 154 - Procedures and Test Procedures and Tests throughout Hospitalization: Therapy Orders & Screens 03/16/17 18:10 EKG ONCE Comment: Diagnosis: PNEUMONIA, UTI 03/17/17 09:29 Respiratory Nebulizer PRN Comment: Diagnosis: AFIB WITH RVR Discharge Exam General Appearance: no apparent distress, alert, obese Neurologic Exam: alert, oriented x 3, cooperative, normal mood/affect, nml cerebellar function, sensation nml, No motor deficits Skin Exam: normal color, warm, dry Eye Exam: PERRL, EOMI, eyes nml inspection Ears, Nose, Throat Exam: normal ENT inspection, pharynx normal, moist mucous membranes Neck Exam: normal inspection, non-tender, supple, full range of motion Respiratory Exam: normal breath sounds, lungs clear, No respiratory distress Cardiovascular Exam: regular rate/rhythm, normal heart sounds Gastrointestinal/Abdomen Exam: soft, No tenderness, No mass Extremity Exam: normal range of motion, other (chronic venous stasis changes bilateral with healing venous stasis ulcerations) Back Exam: normal inspection, normal range of motion, No CVA tenderness, No vertebral tenderness Pelvic Exam: deferred Rectal Exam: deferred Final Diagnosis/Problem List - Final Discharge Diagnosis/Problem (1) Paroxysmal atrial fibrillation with rapid ventricular response Current Visit: Yes Status: Chronic Assessment & Plan: On review of Dr. Minaya's previous office notes this is a known problem and was being treated with xarelto and metoprolol it was likely precipitated this time by the UTI the metoprolol was increased here from 12.5 to 25mg po bid she has been in NSR since conversion with cardizem IV by Dr. Small on early am 03/17 She has f/u with Dr. Minaya in 4 days (2) UTI (urinary tract infection) Current Visit: Yes Status: Acute (3) Diabetes Current Visit: No Status: Chronic (4) Morbid obesity Current Visit: No Status: Chronic - Discharge Discharge Date: 03/18/17 Disposition: Home, Self-Care Condition: Stable Prescriptions: New Cephalexin Mh 500 mg [Keflex 500 mg] 500 mg PO TID #21 capsule Continue Linagliptin [Tradjenta] 5 mg PO DAILY Rivaroxaban [Xarelto] 15 mg PO DAILY Losartan/Hydrochlorothiazide [Losartan-Hctz 100-25 mg Tab] 1 tab PO DAILY Venlafaxine HCl ER 75 mg [Effexor XR 75 MG] 150 mg PO DAILY Levothyroxine Sodium 75 Mcg [Synthroid 75 Mcg] 1 tab PO DAILY Omeprazole 20 MG [Prilosec 20 mg] 1 cap PO BID Furosemide 40 mg PO DAILY Albuterol Sulfate [Ventolin Hfa] 18 gm IH QID Exenatide Microspheres [Bydureon Pen] 2 mg SQ UD Alendronate Sodium 70 mg [Fosamax 70 MG] 1 tab PO Q7D Lipase/Protease/Amylase [Patricia Benson 24,000 Units Capsule] 1 each PO UD Cyanocobalamin 1000 Mcg/ml [Cyanocobalamin B-12 1000 MCG/ML] 1 ml IJ Q30D Meclizine HCl 25 mg [Antivert 25 mg] 1 tab PO TID Loratadine 10 mg [Claritin 10 mg] 1 tab PO DAILY Ergocalciferol (Vitamin D2) [Vitamin D2] 1 cap PO UD Changed Metoprolol Tartrate 25 mg PO BID #0 Instructions: Atrial Fibrillation Follow up with: SHAVON SMALL [Primary Care Provider] - LYNN MINAYA [ACTIVE STAFF] - 03/22/17 2:45 pm ([place] [facility])
[2017-03-18] MEDS: ANTIVERT 25 MG PO SCH (10:11)
[2017-03-18] MEDS: Protonix 40MG Tablet PO SCH (10:11)
[2017-03-18] MEDS: Lasix 40 MG PO SCH (10:11)
[2017-03-18] MEDS: Januvia 50 MG PO SCH (10:12)
[2017-03-18] MEDS: CLARITIN 10 MG PO SCH (10:12)
[2017-03-18] MEDS: SYNTHROID 75 MCG PO SCH (10:12)
[2017-03-18] MEDS: Cozaar 50 MG PO SCH (10:12)
[2017-03-18] MEDS: Effexor XR 75 MG PO SCH (10:12)
[2017-03-18] MEDS: ROCEPHIN 1 Gm-D5w 50 ml Bag** 1 G/50 ML IVPB IV SCH (10:13)
[2017-03-18] MEDS: Lopressor 25MG Tab PO SCH (10:13)
[2017-03-18] MEDS: hydroDIURIL 25 MG PO SCH (10:13)
[2017-03-18 11:07] VITALS: BP 139/60; PULSE 64; O2SAT 93
[2017-03-22] MEDS ORDERED: Fosamax 70 MG PO SCH (06:00)
[2017-04-04] MEDS ORDERED: Cyanocobalamin B-12 1000 MCG/ML IJ SCH (10:00)
== END 2017-03-18 14:01 | disposition home or self-care (01) | DRG 194 ==
LOC: ED 06:21 → MED SURG 09:38 → OBSVTOIN 17:53 → ICU 17:53 → MED SURG 03-17 16:10
PROVIDERS: ADMIT Family Medicine; ATTEND Family Medicine
DX: J18.9 Pneumonia, unspecified organism (principal); N39.0 Urinary tract infection, site not specified; L97.929 Non-pressure chronic ulcer of unspecified part of left lower leg with unspecified severity; L97.919 Non-pressure chronic ulcer of unspecified part of right lower leg with unspecified severity; Z79.4 Long term (current) use of insulin; G62.9 Polyneuropathy, unspecified; I48.91 Unspecified atrial fibrillation; Z98.84 Bariatric surgery status; I73.9 Peripheral vascular disease, unspecified; I25.2 Old myocardial infarction; M19.90 Unspecified osteoarthritis, unspecified site; K21.9 Gastro-esophageal reflux disease without esophagitis; Z87.891 Personal history of nicotine dependence; I50.9 Heart failure, unspecified; I10 Essential (primary) hypertension; E11.9 Type 2 diabetes mellitus without complications; Z79.01 Long term (current) use of anticoagulants; Z79.899 Other long term (current) drug therapy
CPT/HCPCS: 36000; 36415; 71045; 80048; 80053; 80307; 81000; 82150; 82962; 83036; 83690; 83735; 83880; 84134; 84484; 85025; 87077; 87086; 87186; 87631; 93005; 93041; 93268; 96360; 96361; 96365; 99285; G0378; J0456; J0696; J2550; J3475; A9270-GY

== ENCOUNTER 2017-08-02 11:37 | Emergency (ER) | payer MEDICARE ==
[2017-08-02 12:06] VITALS: BP 161/71; PULSE 67; O2SAT 95
--- NOTE | 2017-08-02 12:24 | ERPHSYRPT ---
- History of Present Illness Time Seen by Provider: 08/02/17 12:10 Source: patient Exam Limitations: no limitations Patient Subjective Stated Complaint: pt reports she has a hx of a fib and it feels like she is in it now-states that it is hard to catch her breath but denies pain-states that it feels like her heart is racing Triage Nursing Assessment: pt pink warm and dry-able to move all extremities and self transfer to bed-speaking in complete sentences with no retractions noted and no noted sob-right radial pulse regular and strong Physician History: 62-year-old white female with history of peripheral neuropathy, congestive heart failure, high blood pressure, myocardial infarction, atrial fibrillation with rapid response, asthma, diabetes type 2. Patient arrives with complaints of feeling as if her heart has been racing she states she had this yesterday which began about approximately at 9:00 and continued for 2 hours and then stopped. She states that it recurred this morning at 5:30 AM and stopped when she got into the car just before she got here she denied any chest pain she states she is short of breath with activity. She has no nausea no vomiting no fevers. Past medical history includes peripheral neuropathy, congestive heart failure, high blood pressure, myocardial infarction, peripheral vascular disease, asthma , diabetes type 2, arthritis, GERD, anxiety, patient has an insulin pump, history of high blood pressure, Past surgical history includes gastric bypass, cardiac catheter, cholecystectomy , apparently "opened up to remove fluid from around her heart" in December 2012, patient has had foot surgery in the past bone spurs removed, trigger finger repair Timing/Duration: yesterday (symptoms yesterdayat 9:00 lasting 2 hours symptoms this morning at 5:00 lasting until just prior to arrival), intermittent, resolved prior to arrival Severity: moderate Modifying Factors: Improves With: nothing Associated Symptoms: nausea, shortness of breath (Short of breath with activity) , other (racing heart and palpitations), No vomiting, No abdominal pain, No heartburn, No diaphoresis, No cough, No chills, No chest pain, No fever, No headaches, No loss of appetite, No malaise, No rash, No syncope, No seizure, No weakness Allergies/Adverse Reactions: No Known Drug Allergies Allergy (Verified 08/02/17 12:06) Home Medications: Albuterol Sulfate [Ventolin Hfa] 18 gm IH UD 08/02/17 [History] Alendronate Sodium 70 mg [Fosamax 70 MG] 70 mg PO Q7D@0600 08/02/17 [ History] Calcium Citrate/Vitamin D3 [Calcium Citrate - Vit D3 Tab] 1 each PO DAILY [History] Cyanocobalamin (Vitamin B-12) [B-12 Compliance] 1,000 mcg IJ UD 08/02/17 [ History] Ergocalciferol (Vitamin D2) [Vitamin D2] 50,000 unit PO Q7D 08/02/17 [History] Exenatide Microspheres [Bydureon Bcise] 2 mg SQ UD 08/02/17 [History] Ferrous Gluconate 324 mg PO DAILY 08/02/17 [History] Furosemide [Furosemide] 40 mg PO DAILY 08/02/17 [History] Insulin Aspart [NovoLOG Insulin] 0 unit IN UD 08/02/17 [History] L.acidoph,Paracasei, B.lactis [Probiotic] 1 each PO DAILY 08/02/17 [History] Levothyroxine Sodium 75 mg PO DAILY 08/02/17 [History] Linagliptin [Tradjenta] 5 mg PO DAILY 08/02/17 [History] Lipase/Protease/Amylase [Creon Dr 24,000 Units Capsule] 1 cap PO UD 08/02/17 [ History] Liraglutide [Victoza 2-Marcell] 1.8 mg SQ DAILY 08/02/17 [History] Loratadine 10 mg [Claritin 10 mg] 10 mg PO DAILY 08/02/17 [History] Losartan/Hydrochlorothiazide [Losartan-Hctz 100-25 mg Tab] 1 each PO DAILY 08/02 [History] Meclizine HCl 25 mg [Antivert 25 mg] 25 mg PO TID 08/02/17 [History] Metoprolol Tartrate [Lopressor] 50 mg PO BID 08/02/17 [History] Multivit,Calc,Mins/Iron/Folic [Women's Daily Caplet] 1 each PO DAILY 08/02/17 [ History] [place]-3 Fatty Acids/Fish Oil [Fish Oil 1,000 mg Capsule] 1,000 mg PO DAILY 08/02/17 [History] Omeprazole [Prilosec] 20 mg PO DAILY 08/02/17 [History] Potassium Chloride 10 Meq Tab* [Klor Con 10 MEQ] 10 meq PO DAILY 08/02/17 [ History] Rivaroxaban [Xarelto] 15 mg PO DAILY 08/02/17 [History] Thiamine HCl [B-1] 100 mg PO DAILY 08/02/17 [History] Venlafaxine HCl [Venlafaxine HCl ER] 150 mg PO DAILY 08/02/17 [History] Hx Tetanus, Diphtheria Vaccination/Date Given: No Hx Influenza Vaccination/Date Given: Yes Hx Pneumococcal Vaccination/Date Given: Yes Immunizations Up to Date: Yes - Review of Systems Constitutional: No Fever, No Chills Eyes: No Symptoms Ears, Nose, & Throat: No Symptoms Respiratory: Dyspnea (short of breath with activity) Cardiac: Palpitations, Other (racing heart and palpitations), No Chest Pain, No Edema, No Syncope, No Orthopnea, No PND Abdominal/Gastrointestinal: Nausea, No Abdominal Pain, No Vomiting, No Diarrhea , No Constipation, No Hematemesis, No Hematochezia, No Melena, No Dysphagia, No Appetite Changes Genitourinary Symptoms: No Dysuria Musculoskeletal: No Back Pain, No Neck Pain Skin: Other (patient with chronic care for ulcers on her legs) Neurological: No Dizziness, No Focal Weakness, No Sensory Changes Psychological: No Symptoms Endocrine: No Symptoms All Other Systems: Reviewed and Negative (social) - Past Medical History Pertinent Past Medical History: Yes Neurological History: Peripheral Neuropathy ENT History: Other Cardiac History: Arrhythmia Respiratory History: Asthma, COPD, Pneumonia Endocrine Medical History: Diabetes Type II Musculoskeletal History: Osteoarthritis GI Medical History: GERD, Ulcer, Other History: No Pertinent History Psycho-Social History: Anxiety Female Reproductive Disorders: No Pertinent History Other Medical History: A-fib, UTI - Past Surgical History Past Surgical History: Yes Neuro Surgical History: No Pertinent History Cardiac: No Pertinent History, Cardiac Catheterization Respiratory: No Pertinent History Gastrointestinal: Cholecystectomy Genitourinary: No Pertinent History Musculoskeletal: Other Female Surgical History: No Pertinent History Other Surgical History: states "opened up to drain fluid of the heart around 2012"right collar bone,right top of foot surgery spurs removed,right palm of hand trigger finger.,bariatric surgery, - Social History Smoking Status: Former smoker How long have you smoked: 1 yr Exposure to second hand smoke: No Drug Use: none Patient Lives Alone: No Significant Family History: heart disease - Female History Hx Now: No - Nursing Vital Signs Nursing Vital Signs: Initial Vital Signs Temperature 97.8 F 08/02/17 11:59 Pulse Rate 68 08/02/17 11:59 Respiratory Rate 18 08/02/17 11:59 Blood Pressure 161/71 08/02/17 11:59 O2 Sat by Pulse Oximetry 95 08/02/17 11:59 Pain Scale Pain Intensity 0 - Physical Exam General Appearance: no apparent distress, alert Eye Exam: PERRL/EOMI, eyes nml inspection Ears, Nose, Throat Exam: normal ENT inspection, TMs normal, pharynx normal, moist mucous membranes Neck Exam: normal inspection, non-tender, supple, full range of motion Respiratory Exam: normal breath sounds, lungs clear, No respiratory distress Cardiovascular Exam: regular rate/rhythm, normal heart sounds, normal peripheral pulses Gastrointestinal/Abdomen Exam: soft, normal bowel sounds, No tenderness, No mass Back Exam: normal inspection, normal range of motion, No CVA tenderness, No vertebral tenderness Extremity Exam: normal inspection, normal range of motion, pelvis stable Neurologic Exam: alert, oriented x 3, cooperative, manager user interface II-XII nml as tested, normal mood/affect, nml cerebellar function, nml station & gait, sensation nml, No motor deficits Skin Exam: other (patient with chronic ulcerson her left leg dressing in place, chronic discoloration lower extremities) SpO2 Interpretation: normal (95%) SpO2: 95 Oxygen Delivery: Room Air - Course Nursing assessment & vital signs reviewed: Yes EKG Interpreted by Me: RATE (64 bpm), Sinus Rhythm, NORMAL AXIS, Other (EKG sinus rhythm 64 bpm normal axis no acute ST or T wave changes) - Radiology Exams Chest X-ray Interpretation: Discussed w/ radiologist (chest x-ray: Impression: 1. Cardiomegaly with slight bilateral perihilar and peripheral pulmonary vascular prominence representing no change from March 16, 2017. No findings of worsening heart failure are seen. 2. Chronic central bronchial wall thickening is seen within the deniz, no change 3. No airspace infiltrates to suggest pneumonia or other acute cardiopulmonary process is seen) - CT Exams Chest CT Interpretation: Discussed w/radiologist (CT of the chest with contrast: [address] evidence of acute pulmonary embolism, no thoracic aortic aneurysm or dissection. 2. Mild cardiomegaly, small bilateral posterior pleural effusions with some reflux of contrast into the hepatic veins during the injection.. Findings suggest mild heart failure or fluid volume overload. 3. Mild to moderate pericardial effusion, most prominent along the right lateral margin. This has increased as compared to August 13, 2010. 4. Old healed granulomatous disease. 5. There also appears to be a round soft tissue densitybetween the distal trachea and anterior right lateral margin of the mid thoracic esophagus which in retrospect is seen on the prior study, although it might be slightly large. Nevertheless, this was suggestive nonaggressive pr. Consider the possibility of a mid esophageal diverticulum. This could be assessed with esophagram if desired. An enlarged posterior mediastinal node is not excluded 6. In addition there is some asymmetric soft tissue fullness within the azo esophageal recess which could represent an enlarged lymph node tthis is not definitely appreciated on the prior study correlate clinically.) Ordered Tests: Active Orders 24 hr Category Date Time Status Accucheck STAT Care 08/02/17 12:19 Active Conveyor Belt Repairer STAT Care 08/02/17 12:18 Active EKG-ER Only STAT Care 08/02/17 12:17 Active IV Insertion STAT Care 08/02/17 12:17 Active Pulse Oximetry (ED) STAT Care 08/02/17 12:17 Active CHEST 1 VIEW (PORTABLE) Stat Exams 08/02/17 12:18 Completed CHEST WITH CONTRAST [CT] Stat Exams 08/02/17 13:24 Completed CBC W DIFF Stat Lab 08/02/17 12:40 Completed CMP Stat Lab 08/02/17 12:40 Completed D-DIMER QUANTITATION Stat Lab 08/02/17 12:40 Completed PROTIME WITH INR Stat Lab 08/02/17 12:40 Completed PTT Stat Lab 08/02/17 12:40 Completed TROPONIN Q3H Lab 08/02/17 12:40 Completed TROPONIN Q3H Lab 08/02/17 15:56 Received TROPONIN Q3H Lab 08/02/17 18:30 Ordered TROPONIN Q3H Lab 08/02/17 21:30 Ordered TROPONIN Q3H Lab 08/03/17 00:30 Ordered Medication Summary Discontinued Medications Generic Name Dose Route Start Last Admin Trade Name Freq PRN Reason Stop Dose Admin Furosemide 40 mg 08/02/17 15:51 Lasix 40 Mg/4 Ml IV 08/02/17 15:52 STAT ONE Lab/Rad Data: Laboratory Result Diagrams 08/02/17 12:40 08/02/17 12:40 Laboratory Results 08/02/17 08/02/17 08/02/17 Range/Units 12:40 12:40 12:40 WBC (4.0-10.5) K/mm3 RBC (4.1-5.4) M/mm3 Hgb (12.0-16.0) gm/dl Hct (35-47) % MCV (78-100) fl MCH (26-32) pg MCHC (32-36) g/dl RDW (11.5-14.0) % Plt Count (150-450) K/mm3 MPV (6-9.5) fl Gran % (36.0-66.0) % Eos # (Auto) (0-0.5) Absolute Lymphs (auto) (1.0-4.6) Absolute Monos (auto) (0.0-1.3) Lymphocytes % (24.0-44.0) % Monocytes % (0.0-12.0) % Eosinophils % (0.00-5.0) % Basophils % (0.0-0.4) % Absolute Granulocytes (1.4-6.9) Basophils # (0-0.4) PT 12.1 (9.95-12.35) SECONDS INR 1.04 (0.8-3.0) APTT 32.7 (25.3-37.0) SECONDS D-Dimer 1091 H* (215-500) ng/mL Sodium 145 (137-145) mmol/L Potassium 4.9 (3.5-5.1) mmol/L Chloride 110 H (98-107) mmol/L Carbon Dioxide 29 (22-30) mmol/L Anion Gap 10.8 (5-15) MEQ/L BUN 14 (7-17) mg/dL Creatinine 0.91 (0.52-1.04) mg/dL Estimated GFR > 60.0 ML/MIN Glucose 166 H (74-106) mg/dL Calcium 9.5 (8.4-10.2) mg/dL Total Bilirubin 0.50 (0.2-1.3) mg/dL AST 22 (14-36) U/L ALT 20 (0-35) U/L Alkaline Phosphatase 102 (38-126) U/L Troponin I < 0.012 (0.000-0.034) ng/mL Serum Total Protein 6.8 (6.3-8.2) g/dL Albumin 3.9 (3.5-5.0) g/dL 08/02/17 Range/Units 12:40 WBC 5.3 (4.0-10.5) K/mm3 RBC 3.83 L (4.1-5.4) M/mm3 Hgb 12.1 (12.0-16.0) gm/dl Hct 36.9 (35-47) % MCV 96.3 (78-100) fl MCH 31.5 (26-32) pg MCHC 32.8 (32-36) g/dl RDW 13.5 (11.5-14.0) % Plt Count 141 L (150-450) K/mm3 MPV 10.0 H (6-9.5) fl Gran % 75.2 H (36.0-66.0) % Eos # (Auto) 0.30 (0-0.5) Absolute Lymphs (auto) 0.66 L (1.0-4.6) Absolute Monos (auto) 0.33 (0.0-1.3) Lymphocytes % 12.4 L (24.0-44.0) % Monocytes % 6.2 (0.0-12.0) % Eosinophils % 5.6 H (0.00-5.0) % Basophils % 0.6 (0.0-0.4) % Absolute Granulocytes 4.01 (1.4-6.9) Basophils # 0.03 (0-0.4) PT (9.95-12.35) SECONDS INR (0.8-3.0) APTT (25.3-37.0) SECONDS D-Dimer (215-500) ng/mL Sodium (137-145) mmol/L Potassium (3.5-5.1) mmol/L Chloride (98-107) mmol/L Carbon Dioxide (22-30) mmol/L Anion Gap (5-15) MEQ/L BUN (7-17) mg/dL Creatinine (0.52-1.04) mg/dL Estimated GFR ML/MIN Glucose (74-106) mg/dL Calcium (8.4-10.2) mg/dL Total Bilirubin (0.2-1.3) mg/dL AST (14-36) U/L ALT (0-35) U/L Alkaline Phosphatase (38-126) U/L Troponin I (0.000-0.034) ng/mL Serum Total Protein (6.3-8.2) g/dL Albumin (3.5-5.0) g/dL - Progress Progress: improved Progress Note: 08/02/17 15:44 This is a 62-year-old white female with history of peripheral neuropathy, congestive heart failure, high blood pressure, myocardial infarction, peripheral vascular disease, arthritis, diabetes. The patient arrives with complaints of palpitations associated with shortness of breath with activity which occurred yesterday lasted 2 hours and occurred today and lasted several hours before presenting to the emergency room. She also stated that her heart was racing during these episodes. Patient states that she has a history of atrial fibrillation with rapid response and this is what it felt like. On arrival patient appeared to be stable patient's EKG was noted to be 64 bpm normal axis sinus rhythm Patient unfortunately had an elevated d-dimer of 1091 her troponin was within normal limits her chemistry was essentially normal with the exception of a glucose of 166 CBC was essentially normal patient had a chest x-ray which showed cardiomegaly with bilateral perihilar and peripheral pulmonary vascular prominence which was felt to show no change from March 16, 2017 it did not appear to have worsening heart failure seen she had chronic central bronchial wall thickening within the deniz, with no change she had no airspace infiltrate to suggest pneumonia or other acute cardiopulmonary process unfortunately however, on since CT of the chest patient was noted to have mild cardiomegaly small bilateral posterior pleural effusions and some reflux of contrast into the hepatic veins during the injection felt to represent mild heart failure or fluid overload. Patient also was noted to have a mild to moderate pericardial effusion most prominent along the right lateral margin this had increased as to when which would beti compared to March 15, 2010 Patient also was noted to have around soft tissue density between the distal trachea and anterior right lateral margin of the midthoracic esophagus which had been seen on the prior study however it appeared to be slightly larger is suggested a nonaggressive process and also the consideration was given to the possibility of a midthoracic esophageal diverticulum patient was also noted to have asymmetric soft tissue fullness within the nasal esophageal recess which was not seen on prior study possibly could represent an enlarged lymph node. Patient appeared to be stable I discussed the patient's case with Dr. Ciro Briones the patient's data conversion operator. He states that he will arrange for a bed [facility]. For further evaluation - Departure Time of Disposition: 16:28 Departure Disposition: Transfer Clinical Impression: Palpitations, Pericardial effusion, shortness of breath with activity Congestive heart failure Qualifiers: Heart failure type: unspecified Heart failure chronicity: unspecified Qualified Code(s): I50.9 - Heart failure, unspecified Condition: Fair Critical Care Time: No Referrals: SHAVON SMALL [Primary Care Provider] - Instructions: Heart Failure
[2017-08-02 12:48] LABS: BASOPHIL % 0.6 % (0.0-0.4); Basophil (Absolute #) 0.03 (0-0.4); Eosinophil % 5.6 % (0.00-5.0); Granulocyte Absolute (ANC) 4.01 (1.4-6.9); Granulocytes % 75.2 % (36.0-66.0); Hematocrit 36.9 % (35-47); Hemoglobin 12.1 gm/dl (12.0-16.0); Lymphocyte (Absolute #) 0.66 (1.0-4.6); Lymphocytes % 12.4 % (24.0-44.0); Mean Cell Volume 96.3 fl (78-100); Mean Corpuscular Hgb Concent. 32.8 g/dl (32-36); Monocyte (Absolute #) 0.33 (0.0-1.3); Monocytes % 6.2 % (0.0-12.0); Platelet Count 141 K/mm3 (150-450); Red Blood Count 3.83 M/mm3 (4.1-5.4); Red Cell Distribution Width 13.5 % (11.5-14.0); White Blood Count 5.3 K/mm3 (4.0-10.5)
[2017-08-02 12:56] LABS: Mean Corpuscular Hemoglobin 31.5 pg (26-32)
--- NOTE | 2017-08-02 12:58 | XRAY ---
Exam: AP upright portable chest film from 08/03/2015. Comparison: AP portable chest film from 03/16/2017. Indication: Palpitations, heart racing. Findings: The transverse heart size again appears enlarged. A calcified lymph node is seen within the distal right paratracheal projection representing no change. Some atherosclerotic vascular calcification is seen within the aortic knob. Mild chronic central bronchial wall thickening is seen which I believe is unchanged. Inflation of the lungs is average. The peripheral pulmonary vascularity again appears to be slightly prominent representing no change. No air space infiltrates, Shira B-lines, pneumothorax, or pleural fluid is seen. There is an old left sixth rib fracture deformity posterior laterally representing no change. There appears to be mild narrowing of the glenohumeral joint space of the left shoulder at its superior aspect suggesting early degenerative change. No acute osseous process is seen. Impression: 1. Cardiomegaly with slight bilateral perihilar and peripheral pulmonary vascular prominence representing no change from 03/16/2017. No findings of worsening heart failure are seen. 2. Chronic central bronchial wall thickening is seen within the deniz, no change. 3. No air space infiltrates to suggest pneumonia or other acute cardiopulmonary process is seen.
[2017-08-02 13:01] LABS: INR 1.04 (0.8-3.0)
[2017-08-02 13:03] LABS: PTT 32.7 SECONDS (25.3-37.0)
[2017-08-02 13:06] LABS: ALBUMIN 3.9 g/dL (3.5-5.0); ALKALINE PHOSPHATASE 102 U/L (38-126); ANION GAP 10.8 MEQ/L (5-15); BLOOD UREA NITROGEN 14 mg/dL (7-17); CHLORIDE 110 mmol/L (98-107); Calcium 9.5 mg/dL (8.4-10.2); Carbon Dioxide 29 mmol/L (22-30); Creatinine 1 0.91 mg/dL (0.52-1.04); Glucose 166 mg/dL (74-106); Potassium 4.9 mmol/L (3.5-5.1); SGOT/AST 22 U/L (14-36); SGPT/ALT 20 U/L (0-35); SODIUM 145 mmol/L (137-145); Total Protein 6.8 g/dL (6.3-8.2)
--- NOTE | 2017-08-02 15:20 | XRAY ---
Exam: CT of the chest with IV contrast from 08/02/2017. CTDI: 23.68 Comparison: AP portable chest film from 08/02/[address] of the chest with IV contrast from 08/13/2010. Indication: Shortness of breath, elevated d-dimer, history of atrial fibrillation and prior thoracentesis to drain pleural fluid in the past. Clinical concern for pulmonary embolism. Technique: Post-IV contrast axial images were obtained through the chest using the PE protocol using 80 cc of Isovue-370 IV contrast. Reconstructed coronal and sagittal images were created and reviewed. Findings: The heart size is enlarged with a mild to moderate pericardial effusion extending up into the pericardial recesses of the mid mediastinum. The pericardial effusion is most prominent along the right lateral aspect of the heart where it measures 2.4 cm in width on axial image #37. This is increased from 08/13/2010. The central vessels enhance well. I see no filling defects within the pulmonary arteries to suggest acute pulmonary emboli. Neither do I see evidence of thoracic aortic aneurysm or dissection. A couple prominent distal right paratracheal calcified lymph nodes are again seen. There is also some minimal granulomatous calcification at the posterior margin of the right hilum. I see a lymph node density within the azygoesophageal recess on the right. See axial images #146 through #149. This appears "cope" as compared to that seen on the CT exam from 2010. It currently measures 2.1 cm in width and +31.6 Hounsfield units on axial image #146. An enlarged lymph node is suspected. The trachea and major central branching airways appear open. Posterior to the distal trachea and just anterior right lateral to the mid esophagus, there is a relatively round 2.4 cm x 2.3 cm soft tissue density measuring +55 Hounsfield units. In retrospect, this can be seen on the prior study as well from 2010, although it may be slightly more prominent. I wonder whether this relates to a mid thoracic esophageal diverticulum or other nonaggressive esophageal lesion. Another enlarged lymph node is non-excluded. I note mild bilateral posterior pleural effusions. Minimal compression atelectasis is seen at both posterior lung bases, left greater than right. I also note some minimal scarring/atelectasis at the anterior right lung base. No air space infiltrates are identified. There is no pneumothorax. A densely calcified granuloma is again seen at the posterior medial aspect of the right lower lobe on axial image #143. No other suspicious soft tissue lung nodularity is seen. There is some reflux of contrast within the distal hepatic veins which may reflect mild CHF. The upper abdomen reveals no acute process. Surgical clips in the right upper quadrant consistent with prior cholecystectomy are seen. Mild diffuse pancreatic atrophy is seen. Numerous calcified granulomas are seen within the spleen consistent with old healed granulomatous disease. There is mild thickening of the left adrenal gland consistent with hyperplasia. This appears similar to 08/13/2010. The right adrenal gland appears grossly unremarkable. The bones reveal no acute fracture or aggressive bone lesion. Mild kyphosis near the thoracolumbar junction and vertebral endplate spurring are seen. Impression: 1. I see no CT evidence of acute pulmonary embolism. Neither do I see evidence of thoracic aortic aneurysm or dissection. 2. However, there is mild cardiomegaly, and small bilateral posterior pleural effusions. There is also some reflux of contrast into the hepatic veins during the injection. These findings suggest mild heart failure or fluid volume overload. 3. Mild to moderate pericardial effusion, most prominent along the right lateral margin. This has increased as compared to 08/13/2010. 4. Old healed granulomatous disease. 5. There also appears to be a round soft tissue density between the distal trachea and anterior right lateral margin of the mid thoracic esophagus which in retrospect is seen on the prior study, although it may be slightly larger currently. Nevertheless, this would suggest a nonaggressive process. Consider the possibility of a mid thoracic esophageal diverticulum. See axial images #130 through #138 This could be assessed with esophagram if desired. An enlarged posterior mediastinal lymph node is not excluded. 6. In addition, there is some asymmetric soft tissue fullness within the azygoesophageal recess on axial images #144 through #150 which could represent an enlarged lymph node. This is not definitely appreciated on the prior study from 08/13/2010. Correlate clinically.
[2017-08-02] MEDS ORDERED: Lasix 40 MG/4 ML IV ONE (15:51)
[2017-08-02] MEDS ORDERED: Lasix 40 MG/4 ML ONE (17:01)
== END 2017-08-02 17:06 | disposition short-term general hospital (02) ==
LOC: ED 11:37
DX: R00.2 Palpitations (principal); I31.3 Pericardial effusion (noninflammatory); R06.02 Shortness of breath; I50.9 Heart failure, unspecified; M19.90 Unspecified osteoarthritis, unspecified site; E11.9 Type 2 diabetes mellitus without complications; I73.9 Peripheral vascular disease, unspecified; Z86.79 Personal history of other diseases of the circulatory system
CPT/HCPCS: 36000; 36415; 71045; 71260; 80053; 82962; 83880; 84484; 85025; 85379; 85610; 85730; 93005; 93041; 96374; 99285; J1940

== ENCOUNTER 2017-12-01 15:25 | Inpatient (IN) | payer MEDICARE ==
[2017-12-01] MEDS ORDERED: Colace 100 MG PO PRN (16:28)
[2017-12-01] MEDS ORDERED: TYLENOL 325 MG PO PRN (16:28)
[2017-12-01] MEDS ORDERED: PHARMACY DOSING REQUIRED: VANCOMYCIN IV ONE (16:35)
[2017-12-01 16:38] LABS: BASOPHIL % 0.3 % (0.0-0.4); Basophil (Absolute #) 0.03 (0-0.4); Eosinophil % 7.2 % (0.00-5.0); Eosinophil (Absolute #) 0.63 (0-0.5); Granulocyte Absolute (ANC) 5.99 (1.4-6.9); Granulocytes % 68.3 % (36.0-66.0); Hemoglobin 13.7 gm/dl (12.0-16.0); Lymphocyte (Absolute #) 1.36 (1.0-4.6); Lymphocytes % 15.5 % (24.0-44.0); Mean Cell Volume 91.5 fl (78-100); Mean Corpuscular Hemoglobin 31.4 pg (26-32); Mean Corpuscular Hgb Concent. 34.3 g/dl (32-36); Mean Platelet Volume 10.1 fl (6-9.5); Monocyte (Absolute #) 0.76 (0.0-1.3); Monocytes % 8.7 % (0.0-12.0); Platelet Count 169 K/mm3 (150-450); Red Blood Count 4.37 M/mm3 (4.1-5.4); Red Cell Distribution Width 12.9 % (11.5-14.0); White Blood Count 8.8 K/mm3 (4.0-10.5)
[2017-12-01 16:54] LABS: ALBUMIN 4.4 g/dL (3.5-5.0); ANION GAP 15.2 MEQ/L (5-15); BILIRUBIN,TOTAL 0.7 mg/dL (0.2-1.3); Calcium 9.5 mg/dL (8.4-10.2); Creatinine 1 1.26 mg/dL (0.52-1.04); Potassium 4.4 mmol/L (3.5-5.1); Total Protein 7.3 g/dL (6.3-8.2)
[2017-12-01 16:56] LABS: INR 1.41 (0.8-3.0)
[2017-12-01] MEDS: Sodium Chloride 0.9% 1000 ML 1,000 ML IV SCH (17:13)
[2017-12-01] MEDS: ROCEPHIN 1 Gm-D5w 50 ml Bag** 1 G/50 ML IVPB IV SCH (17:37)
[2017-12-01] MEDS ORDERED: VANCOCIN 1 GM VIAL*** 1 GM in Sodium Chloride 0.9% 250 ML 250 ML IV SCH (18:00)
[2017-12-01] MEDS: VANCOCIN 1 GM VIAL*** 1 GM in Sodium Chloride 0.9% 250 ML 250 ML IV SCH (18:32)
[2017-12-01] MEDS: Klor Con 10 MEQ PO SCH (21:42)
[2017-12-01] MEDS: Lasix 40 MG PO SCH (21:43)
[2017-12-01] MEDS: Toprol Xl 50 MG PO SCH (21:43)
[2017-12-02] MEDS ORDERED: PROVENTIL COMMON CANISTER IH PRN (07:15)
[2017-12-02] MEDS ORDERED: NON-FORMULARY ITEM (Exenatide Microspheres [Bydureon Bcise] 2 MG) SQ SCH (07:45)
[2017-12-02] MEDS ORDERED: PROTEASE PO SCH (08:00)
[2017-12-02] MEDS ORDERED: MEDICATION INTERVENTION MC SCH (08:00)
[2017-12-02] MEDS ORDERED: LIPASE PO SCH (08:00)
[2017-12-02] MEDS ORDERED: AMYLASE PO SCH (08:00)
[2017-12-02] MEDS: Sodium Chloride 0.9% 1000 ML 1,000 ML IV SCH ×2 (08:58→19:32)
[2017-12-02] MEDS: PANCRELIPASE DR 5,000 UNIT CAP PO SCH ×3 (09:18→16:51)
[2017-12-02] MEDS ORDERED: VITAMIN D3 PO SCH (10:00)
[2017-12-02] MEDS ORDERED: CALCIUM CITRATE PO SCH (10:00)
[2017-12-02] MEDS ORDERED: NON-FORMULARY ITEM (Venlafaxine Hcl [Venlafaxine Hcl Er] 150 MG) PO SCH (10:00)
[2017-12-02] MEDS ORDERED: Pepcid 20 MG VIAL IV ONE (11:20)
[2017-12-02] MEDS: ROCEPHIN 1 Gm-D5w 50 ml Bag** 1 G/50 ML IVPB IV SCH (11:32)
[2017-12-02] MEDS ORDERED: Sodium Chloride 0.9% 1000 ML 1,000 ML ONE (11:54)
[2017-12-02] MEDS ORDERED: XYLOCAINE 1% HCL 20 ML MDV ONE (11:54)
[2017-12-02] MEDS: Calcium 500MG W/Vit D Tablet PO SCH (14:22)
[2017-12-02] MEDS: Effexor XR 75 MG PO SCH (14:23)
[2017-12-02] MEDS: CLARITIN 10 MG PO SCH (14:23)
[2017-12-02] MEDS: Cozaar 50 MG PO SCH (14:23)
[2017-12-02] MEDS: Januvia 50 MG PO SCH (14:25)
[2017-12-02] MEDS: hydroDIURIL 25 MG PO SCH (14:25)
[2017-12-02] MEDS: SYNTHROID 75 MCG PO SCH (14:26)
[2017-12-02] MEDS: Zocor 10MG PO SCH (14:26)
[2017-12-02] MEDS: Protonix 40MG Tablet PO SCH (14:26)
[2017-12-02] MEDS: VANCOCIN 1 GM VIAL*** 1 GM in Sodium Chloride 0.9% 250 ML 250 ML IV SCH (14:27)
[2017-12-02] MEDS: Toprol Xl 50 MG PO SCH ×2 (14:28→21:51)
[2017-12-02] MEDS: Klor Con 10 MEQ PO SCH ×2 (14:28→21:51)
[2017-12-02] MEDS: Lasix 40 MG PO SCH ×2 (14:28→16:51)
[2017-12-02] MEDS ORDERED: NORCO 5/325 MG PO PRN (15:14)
[2017-12-02] MEDS ORDERED: IMODIUM 2 MG PO ONE (17:51)
[2017-12-02] MEDS ORDERED: IMODIUM 2 MG PO PRN (17:53)
[2017-12-03] MEDS: Sodium Chloride 0.9% 1000 ML 1,000 ML IV SCH (03:59)
[2017-12-03] MEDS: VANCOCIN 1 GM VIAL*** 1 GM in Sodium Chloride 0.9% 250 ML 250 ML IV SCH (05:36)
[2017-12-03 05:37] LABS: Hemoglobin 12.6 gm/dl (12.0-16.0); Mean Corpuscular Hemoglobin 31.3 pg (26-32); Mean Corpuscular Hgb Concent. 34.1 g/dl (32-36); Mean Platelet Volume 10.3 fl (6-9.5); Platelet Count 155 K/mm3 (150-450); Red Blood Count 4.02 M/mm3 (4.1-5.4); Red Cell Distribution Width 12.8 % (11.5-14.0); White Blood Count 6.6 K/mm3 (4.0-10.5)
[2017-12-03] MEDS: PANCRELIPASE DR 5,000 UNIT CAP PO SCH ×2 (07:42→11:49)
[2017-12-03] MEDS: Effexor XR 75 MG PO SCH (09:52)
[2017-12-03] MEDS: Januvia 50 MG PO SCH (09:52)
[2017-12-03] MEDS: ROCEPHIN 1 Gm-D5w 50 ml Bag** 1 G/50 ML IVPB IV SCH (09:52)
[2017-12-03] MEDS: Cozaar 50 MG PO SCH (09:53)
[2017-12-03] MEDS: Lasix 40 MG PO SCH (09:53)
[2017-12-03] MEDS: CLARITIN 10 MG PO SCH (09:53)
[2017-12-03] MEDS: Toprol Xl 50 MG PO SCH (09:53)
[2017-12-03] MEDS: Calcium 500MG W/Vit D Tablet PO SCH (09:53)
[2017-12-03] MEDS: Zocor 10MG PO SCH (09:53)
[2017-12-03] MEDS: hydroDIURIL 25 MG PO SCH (09:53)
[2017-12-03] MEDS: Protonix 40MG Tablet PO SCH (09:53)
[2017-12-03] MEDS: SYNTHROID 75 MCG PO SCH (09:53)
[2017-12-03] MEDS: Klor Con 10 MEQ PO SCH (09:54)
[2017-12-03 12:45] VITALS: BP 134/62; PULSE 64; O2SAT 98
[2017-12-03] MEDS ORDERED: DIPRIVAN 200 MG/20 ML IV ONE (14:13)
[2017-12-03] MEDS ORDERED: Versed 2 MG/2 ML Injection IV ONE (14:13)
[2017-12-03] MEDS ORDERED: SUBLIMAZE 100 MCG/2 ML IV ONE (14:13)
--- NOTE | 2017-12-04 08:11 | HP ---
CHIEF COMPLAINT: Labia pain. HISTORY OF PRESENT ILLNESS: This is a 62 year-old white female who has been fighting an abscess in her labia on the right side being treated outpatient with Bactrim. However she has continued to get worse. She was seen in the office by Dr. Drake who admitted her to the hospital for IV antibiotics and surgical consultation. PAST MEDICAL/SURGICAL HISTORY: Significant for diabetes mellitus type 2. She has previously had gastric bypass surgery. Problems also with chronic obstructive pulmonary disease, hypertension, hyperlipidemia. HOME MEDICATIONS: Include Acarbose 50 mg t.i.d.. Albuterol PRN, Fosamax 70 mg weekly. She takes calcium with vitamin D, B12, vitamin D 50,000 units weekly, Bydureon 2 mg subcu, iron 325 mg a day. She has been on fluconazole for what she was felt was a yeast infection at 200 mg daily for a week, Furosemide 40 mg b.i.d., Synthroid 75 mcg daily, Tradjenta 5 mg daily, Creon tablets to help with digestion, loratadine 10 mg a day, losartan hydrochlorothiazide 100/25 mg daily, meclizine 25 mg t.i.d. PRN dizziness, Toprol XL 50 mg b.i.d., [place]-3 fatty acids, omeprazole 20 mg a day, potassium 10 mEq tablets 40 mEq b.i.d. Xarelto 15 mg daily, Crestor 5 mg daily. She has also been on trimethoprim sulfa recently for the abscess. Effexor 150 mg extended release daily. ALLERGIES: NKDA. PHYSICAL EXAMINATION: Revealed an obese, white female in moderate distress due to her pain. HEENT: Normocephalic, atraumatic. Pupils equal round reactive to light. Extraocular movements intact. Oropharynx is pink and moist. NECK: Supple without lymphadenopathy, thyromegaly or JVD. CHEST: Clear to auscultation. HEART: Regular rate and rhythm without murmurs, rubs or gallops. ABDOMEN: Soft. No palpable masses. EXTREMITIES: Without clubbing, cyanosis or edema. NEUROLOGIC: The patient is alert and oriented x3. : In the perineal area there is some swelling, redness and warmth in the right labial area with some drainage. LAB DATA AND TESTS: The patient's lab studies showed an international normalized ratio of 1.41, glucose 129, BUN 36, creatinine 1.26. Electrolytes were normal. Liver enzymes were normal. Alkaline phosphatase slightly elevated at 168. A1C was 5.78. Hemoglobin 13.7, white blood cell count 8,800, PLT count 169,000. She had EKG showing no acute changes, normal sinus rhythm, normal axis, somewhat poor R-wave progression across precordial lead however. ASSESSMENT: A patient with labial abscess. She has been admitted for IV antibiotics and surgical consultation for probable incision, drainage and packing. She will be monitored on her sugars with sliding scale coverage in the meantime and continue on her usual home medications.
--- NOTE | 2017-12-04 08:31 | CONS ---
CONSULT DATE: 12/02/2017 REASON FOR CONSULT: Right labial abscess. HISTORY: The patient is a 62 year-old who was admitted by the Hospitalist with swelling and pain in the right labial area. She was started on some IV antibiotics and I was asked to see her in consultation for possible incision and drainage. PAST MEDICAL HISTORY: Positive for some coronary artery disease, hypertension, diabetes. She is insulin dependent diabetic. She has had some coronary artery bypass surgery. The patient is morbidly obese and she is having some purulent drainage from the right labia. PHYSICAL EXAMINATION: She is alert and oriented. HEENT: Pupils equal and normoreactive. NECK: Supple. COR: Regular rhythm. ABDOMEN: Soft, nontender. : Right labia is extremely swollen with some purulent material draining from the medial aspect of it. EXTREMITIES: Within normal limits. No pedal edema. LAB DATA AND TESTS: IMPRESSION: Right labial abscess probably secondary to infected Bartholin's cyst. PLAN: Proceed with incision and drainage in the OR under anesthesia.
--- NOTE | 2017-12-04 08:44 | OP ---
SURGERY DATE/TIME: 12/02/2017 1256 PREOPERATIVE DIAGNOSIS: Right labial abscess. POSTOPERATIVE DIAGNOSIS: Right labial abscess. PROCEDURE: Incision and drainage of right labial abscess. SURGEON: Surya Stauffer M.D. ANESTHESIA: MAC and local. ESTIMATED BLOOD LOSS: Minimal. COMPLICATIONS: None. INDICATIONS: The patient is a 62 year-old diagnosed with right labial abscess. She was taken to surgery for incision and drainage. DESCRIPTION OF PROCEDURE AND FINDINGS: The patient was taken to the OR, placed on the OR table in lithotomy position. The area was prepped and draped in the usual sterile fashion. The patient had a spontaneous drainage. The area that was draining before was opened and the incision was extended for approximately 5 cm up and down longitudinally. Digital exploration revealed the presence and location were then ruptured and the wound was then irrigated and then packed with 0.5 inch Iodoform packing. Dressing was then applied. The patient tolerated this procedure well and was taken back to the recovery area in overall stable condition.
[2017-12-06] MEDS ORDERED: Fosamax 70 MG PO SCH (06:00)
== END 2017-12-03 14:14 | disposition home health service (06) | DRG 746 ==
LOC: MED SURG 15:37
PROVIDERS: ADMIT Family Medicine; ATTEND Family Medicine
PROC: 0U9MXZX Drainage of Vulva, External Approach, Diagnostic (ICD-10-PCS; principal; 2017-12-02)
DX: N76.4 Abscess of vulva (principal); I25.810 Atherosclerosis of coronary artery bypass graft(s) without angina pectoris; R10.2 Pelvic and perineal pain; I10 Essential (primary) hypertension; E11.9 Type 2 diabetes mellitus without complications; Z79.4 Long term (current) use of insulin; E66.01 Morbid (severe) obesity due to excess calories; J44.9 Chronic obstructive pulmonary disease, unspecified; E78.5 Hyperlipidemia, unspecified; Z79.01 Long term (current) use of anticoagulants; Z79.899 Other long term (current) drug therapy
CPT/HCPCS: 36415; 80053; 82962; 83036; 85025; 85027; 85610; 87040; 87070; 87077; 87186; 93005; 94760; J0696; J2250; J2704; J3010; J3370; A9270-GY

== ENCOUNTER 2018-02-06 14:54 | Emergency (ER) | payer MEDICARE ==
--- NOTE | 2018-02-06 15:25 | ERPHSYRPT ---
- History of Present Illness Time Seen by Provider: 02/06/18 15:10 Source: patient Exam Limitations: no limitations Patient Subjective Stated Complaint: cough, productive,no fever, since . was seen by dr christensen yesterday and given a rx and ahs not been filled Triage Nursing Assessment: pt alert, resp easy, skin w/d/p.chest clear.pt has no nebulizer for 2 years now, pt is a poor historian Physician History: 62 y/o white female with h/o cough for 3 to 4 days. pt has h/o copd and bronchitis. pts nebulizer machine not working. pt states she was exposed to daughter who was dx with "flu". in addition, her heat was turned off in her residence. pts pcp called in rx for antibx yesterday but she did not pick pulling machine tender rx at the pharmacy. Timing/Duration: day(s) (3 to 4 days) Cough Quality/Degree: mild, moderate, dry cough Possible Cause: occasional episodes Modifying Factors: Improves With: coughing Associated Symptoms: chest pain/soreness (with cough only), cough, No fever, No chills Allergies/Adverse Reactions: No Known Drug Allergies Allergy (Verified 02/06/18 15:15) Home Medications: Albuterol Sulfate [Ventolin Hfa] 18 gm IH Q4H PRN PRN 08/02/17 [History] Calcium Citrate/Vitamin D3 [Calcium Citrate - Vit D3 Tab] 1 each PO DAILY [History] Cyanocobalamin (Vitamin B-12) [B-12 Compliance] 1,000 mcg IJ UD 08/02/17 [ History] Ergocalciferol (Vitamin D2) [Vitamin D2] 50,000 unit PO Q7D 08/02/17 [History] Exenatide Microspheres [Bydureon Bcise] 2 mg SQ UD 08/02/17 [History] L.acidoph,Paracasei, B.lactis [Probiotic] 1 each PO DAILY 08/02/17 [History] Lipase/Protease/Amylase [Patricia Benson 24,000 Units Capsule] 1 cap PO TIDWMEALS 08/02 [History] Loratadine 10 mg [Claritin 10 mg] 10 mg PO DAILY 08/02/17 [History] Meclizine HCl 25 mg [Antivert 25 mg] 25 mg PO TID 08/02/17 [History] Multivit,Calc,Mins/Iron/Folic [Women's Daily Caplet] 1 each PO DAILY 08/02/17 [ History] [place]-3 Fatty Acids/Fish Oil [Fish Oil 1,000 mg Capsule] 1,000 mg PO DAILY 08/02/17 [History] Omeprazole [Prilosec] 20 mg PO DAILY 08/02/17 [History] Thiamine HCl [B-1] 100 mg PO DAILY 08/02/17 [History] Venlafaxine HCl [Venlafaxine HCl ER] 150 mg PO DAILY 08/02/17 [History] Acarbose 50 mg PO TIDAC 12/01/17 [History] Alendronate Sodium 70 mg [Fosamax 70 MG] 70 mg PO WEEKLY 12/01/17 [History ] Ferrous Sulfate 325 mg PO DAILY 12/01/17 [History] Fluconazole 200 mg PO DAILY 12/01/17 [History] Furosemide 40 mg PO BID 12/01/17 [History] Levothyroxine Sodium 75 mg PO DAILY 12/01/17 [History] Linagliptin [Tradjenta] 5 mg PO DAILY 12/01/17 [History] Losartan/Hydrochlorothiazide [Losartan-Hctz 100-25 mg Tab] 100 mg PO DAILY 12/01 [History] Metoprolol Succinate 50 mg [Toprol Xl 50 MG] 50 mg PO BID 12/01/17 [ History] Potassium Chloride 10 Meq Tab* [Klor Con 10 MEQ] 40 meq PO BID 12/01/17 [ History] Rivaroxaban [Xarelto] 15 mg PO DAILY 12/01/17 [History] Rosuvastatin Calcium 5 mg PO DAILY 12/01/17 [History] Hx Tetanus, Diphtheria Vaccination/Date Given: No Hx Influenza Vaccination/Date Given: Yes Hx Pneumococcal Vaccination/Date Given: Yes Immunizations Up to Date: Yes - Review of Systems Constitutional: No Symptoms, No Fever, No Chills Eyes: No Symptoms, No Discharge Ears, Nose, & Throat: No Symptoms Respiratory: Cough, Dyspnea, Wheezing, No Cyanosis Cardiac: No Symptoms Abdominal/Gastrointestinal: No Symptoms, No Abdominal Pain, No Nausea, No Vomiting, No Diarrhea Genitourinary Symptoms: No Symptoms Musculoskeletal: No Symptoms Skin: No Symptoms Neurological: No Symptoms Psychological: No Symptoms Endocrine: No Symptoms Hematologic/Lymphatic: No Symptoms Immunological/Allergic: No Symptoms All Other Systems: Reviewed and Negative - Past Medical History Pertinent Past Medical History: Yes Neurological History: Peripheral Neuropathy ENT History: No Pertinent History Cardiac History: Arrhythmia Respiratory History: Asthma, COPD, Pneumonia Endocrine Medical History: Diabetes Type II Musculoskeletal History: Osteoarthritis GI Medical History: GERD, Ulcer History: Other Psycho-Social History: Anxiety Female Reproductive Disorders: No Pertinent History Other Medical History: A-fib, UTI - Past Surgical History Past Surgical History: Yes Neuro Surgical History: No Pertinent History Cardiac: No Pertinent History, Cardiac Catheterization Respiratory: No Pertinent History Gastrointestinal: Cholecystectomy Genitourinary: No Pertinent History Musculoskeletal: Other Female Surgical History: No Pertinent History Other Surgical History: states "opened up to drain fluid of the heart around 2012"right collar bone,right top of foot surgery spurs removed,right palm of hand trigger finger.,bariatric surgery, - Social History Smoking Status: Former smoker How long have you smoked: 1 yr Exposure to second hand smoke: No Drug Use: none Patient Lives Alone: Yes Significant Family History: heart disease - Female History Hx Last Menstrual Period: post Hx Now: No - Nursing Vital Signs Nursing Vital Signs: Initial Vital Signs Temperature 98.8 F 02/06/18 15:04 Pulse Rate 52 L 02/06/18 15:04 Respiratory Rate 18 02/06/18 15:04 Blood Pressure 169/101 02/06/18 15:04 O2 Sat by Pulse Oximetry 96 02/06/18 15:04 Pain Scale Pain Intensity 0 - Physical Exam General Appearance: mild distress, alert, anxiety Eye Exam: PERRL/EOMI, eyes nml inspection Ears, Nose, Throat Exam: normal ENT inspection, TMs normal, pharynx normal, moist mucous membranes Neck Exam: normal inspection, non-tender, supple, full range of motion Respiratory Exam: airway intact, rhonchi, wheezing (bilat), No chest tenderness , No respiratory distress, No accessory muscle use Cardiovascular Exam: regular rate/rhythm, normal heart sounds, normal peripheral pulses Gastrointestinal/Abdomen Exam: soft, normal bowel sounds, No tenderness, No guarding, No rebound Pelvic Exam: not done Rectal Exam: not done Extremity Exam: normal inspection, normal range of motion, pelvis stable Neurologic Exam: alert, oriented x 3, cooperative, knocker off II-XII nml as tested Skin Exam: normal color, warm, dry Lymphatic Exam: No adenopathy SpO2 Interpretation: normal SpO2: 96 Oxygen Delivery: Room Air - Course Nursing assessment & vital signs reviewed: Yes Ordered Tests: Active Orders 24 hr Category Date Time Status CHEST 1 VIEW (PORTABLE) Stat Exams 02/06/18 15:31 Completed Respiratory Nebulizer STAT RT 02/06/18 15:31 Active Medication Summary Discontinued Medications Generic Name Dose Route Start Last Admin Trade Name Lakeisha PRN Reason Stop Dose Admin Albuterol Sulfate 2.5 mg 02/06/18 15:30 02/06/18 15:50 Proventil 2.5 Mg/3 Ml Neb IH 02/06/18 15:31 2.5 mg STAT ONE Administration Albuterol Sulfate Confirm 02/06/18 15:50 Proventil 2.5 Mg/3 Ml Neb Administered 02/06/18 15:51 Dose 2.5 mg IH .STK-MED ONE Ceftriaxone Sodium 1,000 mg 02/06/18 16:28 Rocephin 1000 Mg Inj IM 02/06/18 16:29 STAT ONE Methylprednisolone Sodium Succinate 125 mg 02/06/18 16:28 Solu-Medrol 125 Mg IM 02/06/18 16:29 STAT ONE Lab/Rad Data: Laboratory Results 02/06/18 Range/Units Unknown Influenza Type A Ag NEGATIVE (NEGATIVE) Influenza Type B Ag NEGATIVE (NEGATIVE) RSV (PCR) NEGATIVE (Negative) - Progress Progress: improved, re-examined Air Movement: good Progress Note: 02/06/18 16:23 cxr-right lower lobe atelectasis vs early infiltrate - Departure Time of Disposition: 16:30 Departure Disposition: Home Clinical Impression: Bronchitis, Pulmonary infiltrate Condition: Stable Critical Care Time: No Referrals: SHAVON SMALL [Primary Care Provider] - Additional Instructions: follow up with your primary doctor tomorrow for further management. continue your inhaler as prescribed. pick pulling machine tender your antibiotic prescription at the pharmacy as well as the steroid and cough medicine i am prescribing Prescriptions: Hydrocodone Bit/Acetaminophen [Hydrocodone-Acetaminophen Soln] 10 ml PO Q6H # 120 ml Prednisone 10 mg [Deltasone 10 mg] 10 mg PO TID #12 tablet
[2018-02-06] MEDS ORDERED: PROVENTIL 2.5 MG/3 ML NEB IH ONE ×2 (15:30→15:50)
--- NOTE | 2018-02-06 16:15 | XRAY ---
Indication: Cough. Comparison: August 02, 2017. Portable chest again demonstrates cardiomegaly less than before. No focal infiltrate, consolidation, or large effusion. Bony thorax intact again with osteopenia and old left 7th rib fracture. No new/acute findings. Impression: Improved cardiomegaly. Negative acute pneumonic process or CHF.
[2018-02-06 16:22] LABS: INFLUENZA A NEGATIVE (NEGATIVE); INFLUENZA B NEGATIVE (NEGATIVE); RESPIRATORY SYNCTIAL VIRUS NEGATIVE (Negative)
[2018-02-06] MEDS ORDERED: Rocephin 1000 MG INJ IM ONE (16:28)
[2018-02-06] MEDS ORDERED: solu-MEDROL 125 MG IM ONE (16:28)
[2018-02-06 16:32] VITALS: PULSE 70
[2018-02-06] MEDS ORDERED: Rocephin 1000 MG INJ ONE (16:35)
[2018-02-06] MEDS ORDERED: solu-MEDROL 125 MG ONE (16:37)
[2018-02-06 17:12] VITALS: BP 112/59; O2SAT 100
== END 2018-02-06 18:15 | disposition home or self-care (01) ==
LOC: ED 14:54
DX: J40 Bronchitis, not specified as acute or chronic (principal); R91.8 Other nonspecific abnormal finding of lung field; Z79.899 Other long term (current) drug therapy
CPT/HCPCS: 71045; 87631; 94640; 96372; 99284; J0696; J2930; J7609; A9270-GY

== ENCOUNTER 2018-06-28 07:21 | Day surgery (SDC) | payer MEDICARE ==
--- NOTE | 2018-06-25 11:14 | HP ---
AMENDED REPORT: ANTICIPATED PROCEDURE: Excision abscess abdomen possible wound vac. HISTORY OF PRESENT ILLNESS: The patient has a wound requiring excision and wound vac. PAST MEDICAL HISTORY: ALLERGIES: NONE. MEDICATIONS: See list. PAST SURGICAL HISTORY: None recent. SOCIAL HISTORY: Negative. FAMILY HISTORY: Negative. REVIEW OF SYSTEMS: Weight loss. PHYSICAL EXAMINATION: VITAL SIGNS: Normal. CHEST: Clear. COR: Regular. BACK: Abscess. IMPRESSION: Abdomen abscess. PLAN: Excision and wound vac.
[~2018-06-28 07:21] MED LIST: Lactated Ringers 1,000 ML IV SCH; MEFOXIN 2 GM PREMIX** 2 GM/50 ML ML IV ONE
[2018-06-28] MEDS ORDERED: PHENYLEPHRINE HCL IJ ONE (07:22)
[2018-06-28] MEDS ORDERED: TORAdol 30 mg Injection IJ ONE (07:22)
[2018-06-28] MEDS ORDERED: Lactated Ringers 1,000 ML IV ONE (07:22)
[2018-06-28] MEDS ORDERED: Quelicin Fliptop 200 MG/10 ML IJ ONE (07:22)
[2018-06-28] MEDS ORDERED: Decadron 4 MG INJ IV ONE (07:22)
[2018-06-28] MEDS ORDERED: Sensorcaine 0.25% 10 ML ONE (07:22)
[2018-06-28] MEDS ORDERED: DIPRIVAN 200 MG/20 ML IV ONE (07:22)
[2018-06-28] MEDS ORDERED: Dopram IV ONE (07:22)
[2018-06-28] MEDS ORDERED: SUBLIMAZE 100 MCG/2 ML IV ONE (07:22)
[2018-06-28] MEDS ORDERED: ATROPINE SULFATE 1MG IJ ONE (07:22)
[2018-06-28] MEDS ORDERED: Ephedrine Sulfate 50 MG/ML IJ ONE (07:22)
[2018-06-28] MEDS ORDERED: Zofran 4 MG/2 ML VIAL IV ONE (07:22)
[2018-06-28] MEDS ORDERED: ROBINUL IV ONE (07:22)
[2018-06-28] MEDS ORDERED: Zemuron 100 MG/10 ML IJ ONE (07:22)
[2018-06-28] MEDS ORDERED: KEFZOL 1 GM ONE (09:08)
[2018-06-28] MEDS ORDERED: SUBLIMAZE 100 MCG/2 ML ONE (09:48)
[2018-06-28 10:39] VITALS: O2SAT 95
[2018-06-28 10:48] VITALS: BP 127/58; PULSE 80
--- NOTE | 2018-06-28 13:29 | OP ---
SURGERY DATE/TIME: 06/28/2018 0858 PREOPERATIVE DIAGNOSIS: Nonhealing wound with marked amount of deep induration and necrotic nonhealing tissue. POSTOPERATIVE DIAGNOSIS: Nonhealing wound with marked amount of deep induration and necrotic nonhealing tissue. PROCEDURE: Excision and open treatment 7 cm elliptical 5 cm wide, 5 cm deep removing necrotic tissue. SURGEON: Raymond Arredondo M.D. DESCRIPTION OF PROCEDURE: It was prepared for preparation with a wound vac. Hemostasis obtained with electrocautery. Sterile wet to dry dressing applied. For the wound vac, it was medically necessary for there to be accelerated formation of granulation tissue and medical records support this could not be achieved by other available topical wound treatment. All topical things were tried previously and exhaustive, and the wound had not successfully healed. So this tissue has been removed and the process restarted with immediate application of the wound vac. The patient tolerated the procedure satisfactorily.
== END 2018-06-28 10:55 ==
LOC: SDC 07:21
PROVIDERS: ATTEND Surgery
DX: S31.109A Unspecified open wound of abdominal wall, unspecified quadrant without penetration into peritoneal cavity, initial encounter (principal); L02.211 Cutaneous abscess of abdominal wall; L98.8 Other specified disorders of the skin and subcutaneous tissue
CPT/HCPCS: 82962; 87070; 87077; 87186; 88304; J0330; J0461; J0690; J0694; J1100; J1885; J2370; J2405; J2704; J3010